=== PATIENT | male | born 1970 | race Caucasian/White ===

== ENCOUNTER 2019-01-23 23:17 | Emergency (ER) | payer MEDICAID, OTHER ==
[~2019-01-23] VITALS: Ht 175.3 cm; Wt 8.4 kg
[~2019-01-23 23:17] MED LIST: GLUCOSAMINE PO
[2019-01-24 01:39] VITALS: BP 131/89
[2019-01-24] MEDS ORDERED: ketorolac trometh. 30mg/ml inj. IV ONE (02:35)
== END 2019-01-24 03:15 | disposition home or self-care (01) ==
LOC: ER 23:18
DX: T69.022A Immersion foot, left foot, initial encounter (principal); T69.021A Immersion foot, right foot, initial encounter; G89.29 Other chronic pain; F15.90 Other stimulant use, unspecified, uncomplicated; Z79.899 Other long term (current) drug therapy; Z88.2 Allergy status to sulfonamides; Z86.19 Personal history of other infectious and parasitic diseases; Z98.890 Other specified postprocedural states; Y92.89 Other specified places as the place of occurrence of the external cause
CPT/HCPCS: 96374; 99283; J1885

== ENCOUNTER 2019-02-04 07:45 | Emergency (ER) | payer MEDICAID, OTHER ==
[~2019-02-04] VITALS: Ht 175.3 cm; Wt 72.7 kg
[2019-02-04] MEDS ORDERED: IBUP-1984 PO (08:27)
[2019-02-04 08:41] VITALS: BP 132/86
[2019-02-09] MEDS ORDERED: DOXY100T2 PO (13:17)
== END 2019-02-04 08:48 | disposition home or self-care (01) ==
LOC: ER 07:46
DX: M25.561 Pain in right knee (principal); G89.29 Other chronic pain; F17.200 Nicotine dependence, unspecified, uncomplicated; F15.90 Other stimulant use, unspecified, uncomplicated; Z88.2 Allergy status to sulfonamides; Z79.899 Other long term (current) drug therapy; Z98.890 Other specified postprocedural states
CPT/HCPCS: 29505; 73564; 99283

== ENCOUNTER 2019-06-03 14:30 | Inpatient (IN) | payer MEDICAID, OTHER ==
[~2019-06-03] VITALS: Ht 175.3 cm; Wt 75.0 kg
[~2019-06-03 14:30] MED LIST changes: +DOXY100T2 PO
[2019-06-03 21:00] VITALS: BP 133/99
[2019-06-03] MEDS ORDERED: LORazepam 1 MG tablet PO PRN (22:50)
[2019-06-03] MEDS ORDERED: traZODone 50mg tablet PO PRN (22:50)
[2019-06-03] MEDS ORDERED: acetaminophen 325mg tablet PO PRN ×2 (23:00)
[2019-06-03] MEDS ORDERED: magnesium hydroxide 30ml (MOM) UD suspension PO PRN (23:05)
[2019-06-03] MEDS ORDERED: loperamide 2mg capsule PO PRN (23:05)
[2019-06-03] MEDS ORDERED: mag hydrox/Alum hydrox/simeth 30ml oral suspension PO PRN (23:05)
[2019-06-03] MEDS ORDERED: hydrOXYzine 25 MG tablet PO PRN (23:10)
[2019-06-03] MEDS ORDERED: NICOTINE POLACRILEX 2 MG LOZENGE BC PRN (23:20)
--- NOTE | 2019-06-04 00:41 | NUR ---
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 30 year hx ETOH and tobacco use. Smokes 1 ppd. THIS SHIFT: Client transferred from [facility] for Depression and suicidal ideation. Client ambulated to the unit, accompanied by Luis Fernando Da Silva at 21:00. Client presented to CSU reporting SI and having ingested anti-freeze in order to end his life. Client has a 30 year hx of ETOH abuse and tobacco use. Reports mother and brother suicided. Client was angry and resistive to care. Stated,"Why are you asking all these stupid questions? Why do I have to answer the same questions twenty times?" Client gave terse verbal responses. Denied any significant medical hx other than ulcerative colitis. Client resisted 2 RN skin checks. Client did consent to an assessment by Lul Inman RN. Client did not give direct answer to his housing status. Client showered, ate a snack, was oriented to unit. Client was resisted care and stated, "I want to sleep". Client went to sleep after assessment.
[2019-06-04 07:10] LABS: HEMOGLOBIN A1C 5.8 % (4.5-6.2)
[2019-06-04 07:12] LABS: CHOL/HDL RATIO 3.6 (0.00-4.99); CHOLESTEROL 146 MG/DL (0-200); HDL CHOLESTEROL 41 MG/DL (35-60); LDL CHOLESTEROL 88 MG/DL (50-100); TRIGLYCERIDES 68 MG/DL (20-135)
[2019-06-04 08:00] VITALS: BP 95/68
[2019-06-04] MEDS: nicotine 21mg patch - 24 hr TD SCH (08:00)
[2019-06-04 08:36] LABS: BASOPHILS % (AUTO) 0.2 % (0-1); EOSINOPHILS # (AUTO) 0.5 X10'3 (0-0.9); EOSINOPHILS % (AUTO) 7.2 % (0-6); HEMATOCRIT 41.5 % (42.0-52.0); HEMOGLOBIN 14.2 g/dl (14.0-17.9); LYMPHOCYTES # (AUTO) 2.1 X10'3 (1.1-4.8); LYMPHOCYTES % (AUTO) 28.3 % (21-51); MEAN CORPUSCULAR HEMOGLOBIN 30.1 PG (27.0-31.0); MEAN CORPUSCULAR HGB CONC 34.1 g/dL (33.0-36.5); MEAN CORPUSCULAR VOLUME 88.1 FL (78-98); MEAN PLATELET VOLUME 8.6 FL (7.4-10.4); MONOCYTES # (AUTO) 0.7 X10'3 (0-0.9); MONOCYTES % (AUTO) 9.6 % (2-12); NEUTROPHILS % (AUTO) 54.7 % (42-75); PLATELET COUNT 437 X10'3 (140-440); RED BLOOD COUNT 4.71 X10'6 (4.70-6.10); WHITE BLOOD COUNT 7.4 X10'3 (4.5-11.0)
[2019-06-04 08:53] LABS: ALANINE AMINOTRANSFERASE 27 U/L (12-78); ALBUMIN 2.9 G/DL (3.4-5.0); ALBUMIN/GLOBULIN RATIO 0.9 (1.1-1.5); ALKALINE PHOSPHATASE 105 IU/L (46-116); ANION GAP 9 (8-16); ASPARTATE AMINO TRANSFERASE 19 U/L (10-37); BILIRUBIN,TOTAL 0.1 MG/DL (0.1-1.0); BLOOD UREA NITROGEN 12 MG/DL (7-18); BUN/CREATININE RATIO 13.3 (5.4-32.0); CALCIUM 8.2 MG/DL (8.5-10.1); CHLORIDE 106 MMOL/L (99-107); GLUCOSE 102 MG/DL (70-104); POTASSIUM 3.7 MMOL/L (3.5-5.1); SODIUM 141 MMOL/L (135-145); TOTAL CARBON DIOXIDE 25.9 MMOL/L (24-32); eGFR 89 ML/MIN
--- NOTE | 2019-06-04 16:28 | NUR ---
Nursing Progress Note: Turner Legal hold: 5150 Expires 06/06/19 @ 2100 Client on voluntary/involuntary status for DTS. Report received from RIAZ Canas with use of SBAR. Why are they here: Client transferred from [facility] for Depression and suicidal ideation. Client presented to CSU reporting SI and having ingested anti-freeze in order to end his life. Client has a 30 year hx of ETOH abuse and tobacco use. Reports mother and brother both by suicide. Assessment What has happened this shift: Approached patient in recreation room shortly after change of shift. Initially he was pleasant and agreed to both physical and MH assessment. When asked about the events which led to his admission, patient became irritated and asked for a pen and paper "I might as well write it down, since I have been asked 47 times now" He followed by stating "I dont want to talk about that, it is in the past." States he did initially have some audio hallucinations, but would not elaborate further. No medications had been ordered other than PRNs, offered a nicotine patch which he declined. Patient remained isolative throughout the day. Was either in bed or watching TV alone in recreation room. Does not interact with staff. S/I, H/I: Denies A/VH: Audio Sleep: 6 ADL's: independent Group attendance: No Were meds taken: None ordered Any med S/E none Mental Status Exam Appearance: well groomed, dressed in street clothes Eye contact: direct Behavior: cooperative, irritable Speech: clear Mood: irritable Affect: constricted Thought process: Linear Thought Content: not wanting to talk about why he is here Cognition: A & O X 4 Insight: fair Judgment: fair Interventions PRN's used: none Therapeutic interventions: 1:1 therapeutic assessment, provided active listening, medication administration/education/monitoring, ensured contract for safety, Q15 min safety checks. Restraints/seclusion/emergency medication: none Justification of Continued Inpatient Treatment: patient continues to have poor insight and remains at high risk for discharge. He requires full psychiatric assessment and stabilization within a safe and therapeutic environment.
[2019-06-04 19:00] VITALS: BP 114/82
--- NOTE | 2019-06-05 02:14 | NUR ---
Nursing Progress Note: Legal hold: 5150 Expires 06/06/19 @ 2100 Client on involuntary status for DTS. Report received from RIAZ Katz with use of SBAR. Why are they here: Client transferred from [facility] for Depression and suicidal ideation. Client presented to CSU reporting SI and having ingested anti-freeze in order to end his life. Client has a 30 year hx of ETOH abuse and tobacco use. Reports mother and brother both by suicide. Assessment What has happened this shift: The patient was seen in the rec room at shift change. He agreed to 1:1 at his bedside. The patient is guarded with information, and continues to refuse talking about events that led to him being here. He does not respond well to questions, even coming from this commercial loan underwriter who is known to patient. He spends time in rec room watching TV, and does not engage in conversation with other clients or with staff. The patient has no scheduled medications, and refused any PRNs. He went to bed after snack time. S/I, H/I: Denies A/VH: Denies Sleep: See sleep hours ADL's: independent Group attendance: No groups at night. Were meds taken: None ordered Any med S/E None. Mental Status Exam Appearance: well groomed, dressed appropriately in street clothes. Eye contact: direct Behavior: Irritable, isolative. Speech: Clear Mood: Irritable Affect: Constricted Thought process: Linear Thought Content: Not known Cognition: A & O X 4 Insight: fair Judgment: fair Interventions PRN's used: none Therapeutic interventions: 1:1 therapeutic assessment, provided active listening, medication administration/education/monitoring, ensured contract for safety, Q15 min safety checks. Restraints/seclusion/emergency medication: none Justification of Continued Inpatient Treatment: patient continues to have poor insight and remains at high risk for discharge. He requires full psychiatric assessment and stabilization within a safe and therapeutic environment.
[2019-06-05 07:53] VITALS: BP 110/72
[2019-06-05] MEDS: nicotine 21mg patch - 24 hr TD SCH ×2 (07:55→08:00)
--- NOTE | 2019-06-05 15:04 | NUR ---
Nursing Progress Note: Turner Legal hold: 5150 Expires 06/06/19 @ 2100 Client on involuntary status for DTS. Report received from RIAZ Canas with use of SBAR. Why are they here: Client transferred from [facility] for Depression and suicidal ideation. Client presented to CSU reporting SI and having ingested anti-freeze in order to end his life. Client has a 30 year hx of ETOH abuse and tobacco use. Reports mother and brother both by suicide. Assessment What has happened this shift: The patient was seen in the rec room at shift change. Cooperative with physical and MH assessment. Had requested previous evening to shave which was arranged for him this morning. Patient guarded with specific information about past and recent crisis. When asked generalized questions he more willingly engages. States he is feeling some improvement in depression. Does state he prefers not to be around a lot of people, is regularly seen in small rec room watching TV. Enjoyed watching football game on TV. Will start latuda today. S/I, H/I: Denies A/VH: Denies Sleep: 8 hours ADL's: independent, showered and shaved today Group attendance: no group Were meds taken: None ordered Any med S/E None. Mental Status Exam Appearance: well groomed, dressed appropriately in street clothes. Eye contact: direct Behavior: Calm, isolative. Speech: Clear Mood: Somnolent Affect: Guarded Thought process: Linear Thought Content: Not known Cognition: A & O X 4 Insight: fair Judgment: fair Interventions PRN's used: none Therapeutic interventions: 1:1 therapeutic assessment, provided active listening, medication administration/education/monitoring, ensured contract for safety, Q15 min safety checks. Restraints/seclusion/emergency medication: none Justification of Continued Inpatient Treatment: patient continues to have poor insight and remains at high risk for discharge. He requires full psychiatric assessment and stabilization within a safe and therapeutic environment.
[2019-06-05] MEDS ORDERED: nicotine 21mg patch - 24 hr TD ONE (17:00)
[2019-06-05] MEDS ORDERED: lurasidone 20mg tablet PO SCH (17:00)
[2019-06-05 19:57] VITALS: BP 101/67
--- NOTE | 2019-06-05 22:59 | NUR ---
Nursing Progress Note: Legal hold: 5150 Expires 06/06/19 @ 2100 Client on involuntary status for DTS. Report received from RIAZ Katz with use of SBAR. Why are they here: Client transferred from [facility] for Depression and suicidal ideation. Client presented to CSU reporting SI and having ingested anti-freeze in order to end his life. Client has a 30 year hx of ETOH abuse and tobacco use. Reports mother and brother both by suicide. Assessment What has happened this shift: The patient was in the rec room at shift change. He went to bed soon after. He agreed to 1:1 at his bedside. The patient continues to be guarded about the events leading up to his being here. He talks freely about past events that are known to myself...like his time spent at [facility]. He states that he spent time watching football today and using headphones. "When it gets too many people in there, I have to leave." The patient started Latuda today. No ASE noted. S/I, H/I: Passive A/VH: Denies Sleep: See sleep hours ADL's: independent Group attendance: No groups at night. Were meds taken: None ordered Any med S/E None. Mental Status Exam Appearance: Well groomed, dressed appropriately in street clothes. Eye contact: Direct Behavior: Irritable, isolative. Speech: Clear Mood: Irritable Affect: Constricted Thought process: Linear Thought Content: "I just want to get out of here." Cognition: A & O X 4 Insight: fair Judgment: fair Interventions PRN's used: none Therapeutic interventions: 1:1 therapeutic assessment, provided active listening, medication administration/education/monitoring, ensured contract for safety, Q15 min safety checks. Restraints/seclusion/emergency medication: none Justification of Continued Inpatient Treatment: patient continues to have poor insight and remains at high risk for discharge. He requires full psychiatric assessment and stabilization within a safe and therapeutic environment.
[2019-06-06 08:00] VITALS: BP 110/71
[2019-06-06] MEDS: nicotine 21mg patch - 24 hr TD SCH (08:00)
[2019-06-06] MEDS: lurasidone 20mg tablet PO SCH (17:42)
--- NOTE | 2019-06-06 17:45 | NUR ---
Nursing Progress Note: Turner Legal hold: 5150 Expires 06/06/19 @ 2100 Client on involuntary status for DTS. Report received from RIAZ Canas with use of SBAR. Why are they here: Client transferred from [facility] for Depression and suicidal ideation. Client presented to CSU reporting SI and having ingested anti-freeze in order to end his life. Client has a 30 year hx of ETOH abuse and tobacco use. Reports mother and brother both by suicide. Assessment What has happened this shift: Up for breakfast. Refused AM nicotine patch. Cooperative with physical and MH assessment. Initially stated "Don't start asking me all the same questions every one else does because I'm not answering anything." Patient then asked if he graduated high school. Said "Of course not. 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 In the early afternoon, sat in a chair in the valentine and was making derogatory statements at staff for unknown reasons. Did not accept responsibility for his behavior. When confronted "What are you talking about, I haven't done anything." Keeps to himself. Does not engage in conversations with others. Denies suicidal ideation or intent. "I just need to get myself out of this place and start living again." Presents as incapable of recognizing cause and effect behavior. S/I, H/I: Denies A/VH: Denies Sleep: 8 hours ADL's: Independent Group attendance: no group Were meds taken: None ordered Any med S/E:None noted Mental Status Exam Appearance: well groomed, dressed appropriately in street clothes. Eye contact: direct Behavior: Calm, isolative. Speech: Clear Mood: Somnolent Affect: Guarded Thought process: Linear Thought Content: Not known Cognition: A & O X 4 Insight: fair Judgment: fair Interventions PRN's used: Ativan 1 mg. PO PRN Therapeutic interventions: 1:1 therapeutic assessment, provided active listening, medication administration/education/monitoring, ensured contract for safety, Q15 min safety checks. Restraints/seclusion/emergency medication: none Justification of Continued Inpatient Treatment: patient continues to have poor insight and remains at high risk for discharge. He requires full psychiatric assessment and stabilization within a safe and therapeutic environment.
--- NOTE | 2019-06-06 19:45 | NUR ---
At around 1900 I was doing my rounds on the unit, and I entered this patients room which was open, and patients roommate and nurse were present in the room. I was engaged in conversation with patients roommate when the patient began swearing and becoming agitated because we were disturbing his sleep. I tried to explain to the patient who I was and that I was doing my rounds and patient continued to be belligerent and I explained to him that it was still daytime hours and that his behavior was not acceptable. I left the room and patient followed me down the hallway requesting to know my name and wanting a grievance form, he was provided with both.
[2019-06-06 20:00] VITALS: BP 119/83
--- NOTE | 2019-06-06 22:18 | NUR ---
Nursing Progress Note: Legal hold: 5150 Expires 06/06/19 @ 2100 Client on involuntary status for DTS. Report received from RIAZ Katz with use of SBAR. Why are they here: Client transferred from [facility] for Depression and suicidal ideation. Client presented to CSU reporting SI and having ingested anti-freeze in order to end his life. Client has a 30 year hx of ETOH abuse and tobacco use. Reports mother and brother both by suicide. Assessment What has happened this shift: The patient was in the rec room at shift change. He was watching TV and saying derogatory words to people walking by. When asked why he's doing that, he replied that he wasn't doing anything. The patient avoids staff and isolates in his room. He is not going to groups or doing anything to help himself. The patient's 5150 was up at 2100 tonight, and the patient signed Voluntary. He states that he will probably leave tomorrow. S/I, H/I: Denies A/VH: Denies Sleep: See sleep hours ADL's: independent Group attendance: No groups at night. Were meds taken: None ordered Any med S/E None. Mental Status Exam Appearance: Well groomed, dressed appropriately in street clothes. Eye contact: Direct Behavior: Irritable, isolative, angry Speech: Clear Mood: Angry Affect: Constricted Thought process: Linear Thought Content: "I just want to get out of here." Cognition: A & O X 4 Insight: fair Judgment: fair Interventions PRN's used: none Therapeutic interventions: 1:1 therapeutic assessment, provided active listening, medication administration/education/monitoring, ensured contract for safety, Q15 min safety checks. Restraints/seclusion/emergency medication: none Justification of Continued Inpatient Treatment: patient continues to have poor insight and remains at high risk for discharge. He requires full psychiatric assessment and stabilization within a safe and therapeutic environment.
[2019-06-07 08:00] VITALS: BP 108/70
[2019-06-07] MEDS: nicotine 21mg patch - 24 hr TD SCH (08:37)
--- NOTE | 2019-06-07 16:03 | NUR ---
Nursing Progress Note: Asif Legal hold: 5150 Expires 06/06/19 @ 2100 Client on involuntary status for DTS. Report received from RIAZ Neri with use of SBAR. Why are they here: Client transferred from [facility] for Depression and suicidal ideation. Client presented to CSU reporting SI and having ingested anti-freeze in order to end his life. Client has a 30 year hx of ETOH abuse and tobacco use. Reports mother and brother both by suicide. Assessment What has happened this shift: Client was awake and was angry when this publicity writer assumed care. Client wishes to discharge to [facility] and is frustrated that he may not be able to return there before discharging locally. He refuses to contract for safe behaviors and refuses any PRN intervention. He was given headphones to distract with good effect. Client spoke with Dr. Wells and this publicity writer and seemed to calm once he was awre of this facilities efforts to find a viable discharge plan. Client was amicable to assessment and medications and has had no behavioral issues as of this writing. Client is currently here on a voluntary basis and when angered, client will want to depart unit. Redirection has been effective. Client was offerred a warm shower at 1118 hours and accepted. Client was interviewed by [facility] Staff today regarding transitional housing after discharge. Client is having difficulty with his anxiety as it pertains to his discharge plans. He has been loud verbally and intrusive with various members of the team attempting to be discharged today. Client was informed that he would have a bed a [facility] tomorrow and he was encouraged to remain on unit on voluntary status until he can be transitioned safely. Client redirected and he was allowed in his room where he is currently resting (1439 hours). Client did verbally agree to stay until he can be safely transitioned when [facility] opens a bed for him tomorrow. S/I, H/I: Denies A/VH: Denies Sleep: ADL's: independent Group attendance: no Were meds taken: None ordered Any med S/E None. Mental Status Exam Appearance: Well groomed, dressed appropriately in street clothes. Eye contact: Direct Behavior: Irritable, isolative, angry Speech: Clear Mood: Angry Affect: Constricted Thought process: Linear Thought Content: "I just want to get out of here." Cognition: A & O X 4 Insight: fair Judgment: poor Interventions PRN's used: none Therapeutic interventions: 1:1 therapeutic assessment, provided active listening, medication administration/education/monitoring, ensured contract for safety, Q15 min safety checks. Restraints/seclusion/emergency medication: none Justification of Continued Inpatient Treatment: patient continues to have poor insight and remains at high risk for discharge. He requires full psychiatric assessment and stabilization within a safe and therapeutic environment.
[2019-06-07] MEDS: lurasidone 20mg tablet PO SCH (16:55)
[2019-06-07 20:14] VITALS: BP 117/78
--- NOTE | 2019-06-08 00:31 | NUR ---
Nursing Progress Note: Legal hold: 5150 Expires 06/06/19 @ 2100 Client on involuntary status for DTS. Report received from RIAZ Katz with use of SBAR. Why are they here: Client transferred from [facility] for Depression and suicidal ideation. Client presented to CSU reporting SI and having ingested anti-freeze in order to end his life. Client has a 30 year hx of ETOH abuse and tobacco use. Reports mother and brother both by suicide. Assessment What has happened this shift: The patient was in the group room watching music videos at shift change. He sits by himself and doesn't interact with other clients. "I'm still not saying anything to you." The patient continues his anti-social behaviors, and avoids eye contact with anybody. He c/o anxiety related to his discharge, but will not use any PRN medicine foe relief. The patient was calm and peaceful tonight with no outbursts. He expects to DC to the [facility] in the morning. S/I, H/I: Denies A/VH: Denies Sleep: See sleep hours ADL's: independent Group attendance: No groups at night. Were meds taken: None ordered Any med S/E None. Mental Status Exam Appearance: Well groomed, dressed appropriately in street clothes. Eye contact: Avoids Behavior: Irritable, isolative, angry Speech: Clear Mood: Angry Affect: Flat Thought process: Linear Thought Content: "I just want to get out of here." Cognition: A & O X 4 Insight: fair Judgment: fair Interventions PRN's used: none Therapeutic interventions: 1:1 therapeutic assessment, provided active listening, medication administration/education/monitoring, ensured contract for safety, Q15 min safety checks. Restraints/seclusion/emergency medication: none Justification of Continued Inpatient Treatment: patient continues to have poor insight and remains at high risk for discharge. He requires full psychiatric assessment and stabilization within a safe and therapeutic environment.
[2019-06-08 08:00] VITALS: BP 116/72
[2019-06-08] MEDS: nicotine 21mg patch - 24 hr TD SCH (08:00)
[2019-06-08] MEDS ORDERED: LURA80TA3 PO (11:34)
[2019-06-08] MEDS ORDERED: HYDR50TA65 PO (11:34)
--- NOTE | 2019-06-08 16:12 | NUR ---
Nursing Discharge Note Patient is discharged and accompanied off the unit at 1525. He will be transported via [facility] TAD Nutrition Services Assistant to [facility] Patient has no S/S of distress. Discharge instructions given and provided to patient. Opportunity provided to patient to ask questions, patient denies having any. Prescriptions called into [facility]. Patient denies wanting nicotine replacement stating No I dont need it, I havent decided if I want to quit or not. Patients belongings inventoried with Donte LEIJA. Patient took all possessions with him. Community crisis service information and national suicide hot line handout given. Patient has improved since admit.
== END 2019-06-08 15:25 | disposition short-term general hospital (02) | DRG 753 ==
LOC: ADULT MH 14:30
PROVIDERS: ADMIT Psychiatry & Neurology Psychiatry; ATTEND Psychiatry & Neurology Psychiatry
DX: F31.5 Bipolar disorder, current episode depressed, severe, with psychotic features (principal); R45.851 Suicidal ideations; F15.151 Other stimulant abuse with stimulant-induced psychotic disorder with hallucinations; F43.10 Post-traumatic stress disorder, unspecified; F41.1 Generalized anxiety disorder; F17.210 Nicotine dependence, cigarettes, uncomplicated; G47.00 Insomnia, unspecified; Z65.3 Problems related to other legal circumstances; Z85.828 Personal history of other malignant neoplasm of skin; Z71.6 Tobacco abuse counseling; Z71.51 Drug abuse counseling and surveillance of drug abuser
CPT/HCPCS: 36415; 71045; 80053; 80061; 83036; 84443; 85025; 87081; 99285

== ENCOUNTER 2019-10-28 02:43 | Emergency (ER) | payer MEDICAID ==
[~2019-10-28] VITALS: Ht 182.9 cm; Wt 100.0 kg
[~2019-10-28 02:43] MED LIST changes: -DOXY100T2 PO; -GLUCOSAMINE PO; +HYDR50TA65 PO; +LURA80TA3 PO
[2019-10-28 02:46] VITALS: BP 119/78
[2019-10-28] MEDS ORDERED: MUPI22OI30 TOP (02:55)
[2019-10-28] MEDS ORDERED: MICO113C TOP (02:55)
[2019-10-28] MEDS ORDERED: IBUP-1986 PO (02:55)
== END 2019-10-28 03:13 | disposition home or self-care (01) ==
LOC: ER 02:44
DX: B35.3 Tinea pedis (principal); G89.29 Other chronic pain; F15.90 Other stimulant use, unspecified, uncomplicated; F17.210 Nicotine dependence, cigarettes, uncomplicated; Z98.890 Other specified postprocedural states; Z86.19 Personal history of other infectious and parasitic diseases; Z88.2 Allergy status to sulfonamides; Z88.8 Allergy status to other drugs, medicaments and biological substances; Z79.899 Other long term (current) drug therapy
CPT/HCPCS: 99283

== ENCOUNTER 2021-11-16 03:23 | Emergency (ER) | payer MEDICAID ==
[~2021-11-16] VITALS: Ht 175.3 cm; Wt 66.2 kg
[~2021-11-16 03:23] MED LIST changes: +IBUP-1986 PO; +LURA80TA2 PO; -LURA80TA3 PO; +MICO113C TOP
== END 2021-11-16 07:39 | disposition left against medical advice (07) ==
LOC: ER 03:24
DX: M79.644 Pain in right finger(s) (principal); Z53.21 Procedure and treatment not carried out due to patient leaving prior to being seen by health care provider

== ENCOUNTER 2021-12-31 01:59 | Emergency (ER) | payer MEDICAID ==
[~2021-12-31] VITALS: Ht 172.7 cm; Wt 81.8 kg
[2021-12-31 02:16] VITALS: BP 152/98
[2021-12-31 02:49] LABS: BASOPHILS # (AUTO) 0.1 X10'3 (0-0.2); BASOPHILS % (AUTO) 1.1 % (0-1); EOSINOPHILS # (AUTO) 0.4 X10'3 (0-0.9); EOSINOPHILS % (AUTO) 3.4 % (0-6); HEMATOCRIT 41.5 % (42.0-52.0); HEMOGLOBIN 14.2 g/dl (14.0-17.9); LYMPHOCYTES # (AUTO) 1.6 X10'3 (1.1-4.8); LYMPHOCYTES % (AUTO) 13.7 % (21-51); MEAN CORPUSCULAR HEMOGLOBIN 29.7 PG (27.0-31.0); MEAN CORPUSCULAR HGB CONC 34.3 g/dL (33.0-36.5); MEAN CORPUSCULAR VOLUME 86.7 FL (78-98); MEAN PLATELET VOLUME 7.4 FL (7.4-10.4); MONOCYTES # (AUTO) 0.9 X10'3 (0-0.9); MONOCYTES % (AUTO) 7.4 % (2-12); NEUTROPHILS # (AUTO) 8.8 X10'3 (1.8-7.7); NEUTROPHILS % (AUTO) 74.4 % (42-75); PLATELET COUNT 493 X10'3 (140-440); RED BLOOD COUNT 4.79 X10'6 (4.70-6.10); RED CELL DISTRIBUTION WIDTH 14.3 % (11.5-14.5); WHITE BLOOD COUNT 11.8 X10'3 (4.5-11.0)
[2021-12-31 02:57] LABS: ALANINE AMINOTRANSFERASE 55 U/L (12-78); ALBUMIN 3.5 G/DL (3.4-5.0); ALKALINE PHOSPHATASE 143 IU/L (46-116); ANION GAP 10 (8-16); ASPARTATE AMINO TRANSFERASE 37 U/L (10-37); BILIRUBIN,TOTAL 0.4 MG/DL (0.1-1.0); BLOOD UREA NITROGEN 25 MG/DL (7-18); BUN/CREATININE RATIO 25.3 (5.4-32.0); CALCIUM 8.6 MG/DL (8.5-10.1); CHLORIDE 103 MMOL/L (99-107); CREATININE 0.99 MG/DL (0.60-1.10); GLUCOSE 132 MG/DL (70-104); POTASSIUM 3.8 MMOL/L (3.5-5.1); SODIUM 141 MMOL/L (135-145); TOTAL CARBON DIOXIDE 28.1 MMOL/L (24-32); TOTAL PROTEIN 7.1 G/DL (6.4-8.2); eGFR 79 ML/MIN
== END 2021-12-31 03:45 | disposition home or self-care (01) ==
LOC: ER 01:59
DX: F10.129 Alcohol abuse with intoxication, unspecified (principal); R56.9 Unspecified convulsions; R00.0 Tachycardia, unspecified; G89.29 Other chronic pain; F15.90 Other stimulant use, unspecified, uncomplicated; Z86.19 Personal history of other infectious and parasitic diseases; Z72.89 Other problems related to lifestyle; Z98.890 Other specified postprocedural states; Z88.2 Allergy status to sulfonamides; Z88.8 Allergy status to other drugs, medicaments and biological substances; Z79.899 Other long term (current) drug therapy; Y90.9 Presence of alcohol in blood, level not specified
CPT/HCPCS: 36415; 80053; 85025; 93005; 99284

== ENCOUNTER 2022-01-03 14:51 | Inpatient (IN) | payer MEDICAID ==
[~2022-01-03] VITALS: Ht 175.3 cm; Wt 69.9 kg
[2022-01-03] MEDS ORDERED: CYCL-1 PO ×2 (22:04→22:08)
[2022-01-03] MEDS ORDERED: MELO-102 PO ×2 (22:04→22:08)
[2022-01-03] MEDS ORDERED: GABA-530 PO (22:04)
[2022-01-03] MEDS ORDERED: IBUP-1986 PO (22:08)
[2022-01-03] MEDS ORDERED: loperamide 2mg capsule PO PRN (22:25)
[2022-01-03] MEDS ORDERED: magnesium hydroxide 30ml (MOM) UD suspension PO PRN (22:25)
[2022-01-03] MEDS ORDERED: mag hydrox/Alum hydrox/simeth 30ml oral suspension PO PRN (22:25)
[2022-01-03] MEDS ORDERED: acetaminophen 325mg tablet PO PRN (22:25)
[2022-01-03] MEDS ORDERED: NICOTINE POLACRILEX 2 MG LOZENGE BC PRN (22:25)
[2022-01-03 22:32] VITALS: BP 143/94
[2022-01-04] MEDS ORDERED: gabapentin 100mg capsule PO SCH
[2022-01-04] MEDS ORDERED: cyclobenzaprine 10mg tablet PO SCH
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
--- NOTE | 2022-01-04 04:46 | NUR ---
[facility] notified [facility] that client's clothes and medication were at [facility] ED. (This RN left unit at 00:30 to get client's belongings. Returned to unit at 01:00.) Belongings included a coat and a bottle of Flexeril. Items were inventoried by Luis Fernando Da Silva Flexeril was taken to pharmacy.
[2022-01-04 08:00] VITALS: BP 128/90
[2022-01-04] MEDS ORDERED: MELOXICAM PO SCH (08:00)
[2022-01-04] MEDS: nicotine 21mg patch - 24 hr TD SCH ×2 (08:00→08:05)
[2022-01-04] MEDS: gabapentin 100mg capsule PO SCH ×3 (08:05→20:13)
[2022-01-04] MEDS ORDERED: hydrOXYzine 25 MG tablet PO PRN ×2 (11:00)
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
[2022-01-04 19:00] VITALS: BP 130/86
[2022-01-04] MEDS: cyclobenzaprine 10mg tablet PO PRN (20:13)
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
[2022-01-05] MEDS: gabapentin 100mg capsule PO SCH ×3 (07:53→20:14)
[2022-01-05] MEDS: acetaminophen 325mg tablet PO PRN (07:54)
[2022-01-05 08:00] VITALS: BP 129/85
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
[2022-01-05 19:33] VITALS: BP 128/84
[2022-01-05] MEDS: cyclobenzaprine 10mg tablet PO PRN (20:14)
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
[2022-01-06] MEDS: gabapentin 100mg capsule PO SCH ×3 (07:53→20:25)
[2022-01-06] MEDS: acetaminophen 325mg tablet PO PRN (07:54)
[2022-01-06 08:00] VITALS: BP 119/87
--- NOTE | 2022-01-06 09:16 | NUR ---
CM-Linkages Pt states that he's been working [facility] to access inpt [facility] services. Clinician had t/c [facility] new pt coordinator @ [facility], per t/c pt has not established services w/[facility], had 1 outpt contact but no documentation of [facility] services. Clinician will engage pt in exploring options for dcp. Doreen Esparza LCSW Addendum: 01/07/22 at 0919 by Doreen Esparza SS Amended: Links added.
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
[2022-01-06 19:42] VITALS: BP 110/64
[2022-01-06] MEDS: cyclobenzaprine 10mg tablet PO PRN (20:25)
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
[2022-01-07] MEDS: gabapentin 100mg capsule PO SCH ×3 (08:03→20:05)
--- NOTE | 2022-01-07 09:01 | NUR ---
Initial: Pt admitted w/ suicidal ideations per EMR. Currently on Regular diet w/ double protein TID w/ mostly 100% intake of meals and some snacks, exceeding est nutrient needs. Recommend discontinuing double protein w/ meals as it is not indicated given pt exceeding protein needs by over 200% LBM 01/06. Will continue to monitor. Recs: 1. Continue Regular diet; Discontinue double protein 2. Routine Thiamine, Folic acid, MVI if MD agreeable given EtOH hx 3. Bowel care per rx 4. Weekly wts Addendum: 01/07/22 at [address] Amended: Links added.
[2022-01-07 09:07] VITALS: BP 107/81
--- NOTE | 2022-01-07 11:01 | NUR ---
CM-dcp Presenting Issues: Pt's 5150 had , attending physician was planning to provide a 5250. Pt continues to require dcp support. Interventions: Clinician met w/pt & reviewed his dcp- going to [facility] as pt believes that he's got a bed there. However, pt's on a waitlist for a 02/03 admission there. When informed of this, pt became upset, cursing loudly, expressed sentiments that [facility] had lied to him as they told me that "there's a bed waiting for me." Clinician suggested that once he is able to speak calmly, he can contact [facility] again and request for a facility that can admit him w/in 24-48 hours. Pt indicated that he would do so. Plan: Clinician will check in w/pt late this afternoon. Doreen Esparza LCSW Addendum: 01/07/22 at 1106 by Doreen Esparza SS Amended: Links added.
[2022-01-07] MEDS ORDERED: ESCITALOPRAM OXALATE 5 MG TABLET PO ONE (11:55)
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
[2022-01-07] MEDS ORDERED: hydrOXYzine 25 MG tablet PO PRN (15:45)
[2022-01-07 19:41] VITALS: BP 122/75
[2022-01-07] MEDS: LORazepam 0.5 MG tablet PO PRN (20:05)
[2022-01-07] MEDS: traZODone 50mg tablet PO PRN (20:05)
[2022-01-07] MEDS: cyclobenzaprine 10mg tablet PO PRN (20:08)
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
[2022-01-08] MEDS: duloxetine 30mg CAPSULE.DR PO SCH (07:25)
[2022-01-08] MEDS: gabapentin 100mg capsule PO SCH ×3 (07:25→20:07)
[2022-01-08 07:50] VITALS: BP 124/80
[2022-01-08] MEDS ORDERED: ESCITALOPRAM OXALATE 5 MG TABLET PO SCH (08:00)
--- NOTE | 2022-01-08 15:08 | NUR ---
CM-Linkages Presenting Issues: Pt is close to d/c-ing and has followed up w/[facility], scheduled an intake w/[facility] for 01/27 hoping to get a bed there on 02/03. Attending physician recommends [facility] services until he can enter [facility]. Interventions: Met w/pt and provided info about [facility], pt agreed to a referral there. Clinician completed referral and sent it to [facility] to facilitate pt's access to [facility] interview. Plan: Clinician will f/u w/[facility] re pt's [facility] referral. Doreen Esparza LCSW Addendum: 01/08/22 at 1511 by Doreen Esparza SS Amended: Links added.
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
[2022-01-08 19:27] VITALS: BP 121/85
[2022-01-08] MEDS: cyclobenzaprine 10mg tablet PO PRN (20:07)
[2022-01-08] MEDS: LORazepam 0.5 MG tablet PO PRN (20:07)
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
[2022-01-09 07:47] VITALS: BP 122/86
[2022-01-09] MEDS: duloxetine 30mg CAPSULE.DR PO SCH (08:09)
[2022-01-09] MEDS: gabapentin 100mg capsule PO SCH ×3 (08:09→20:20)
--- NOTE | 2022-01-09 08:55 | NUR ---
CM-Continuity of Care Presenting Issues: Pt will participate in an intake w/[facility] on 01/27 to determine if he meets criteria for inpatient drug/alcohol [place], [facility] is unable to provide services for pt as they have no open male beds. Interventions: Clinician had t/c with Claire, Lining Machine Operator @ [facility] ([phone]) requesting hotel vouchers for pt while he waits for a bed @ [facility]. Per t/c Claire ask that clinician call back tomorrow mid-day to see if [facility] will have a voucher for pt until 02/03. Pt will need to d/c sometime next week. Clinician also called [facility] ([phone]) and left requesting rt t/c re pt needing hotel voucher. Plan: Clinician will rt t/c to [facility] tomorrow. Doreen Esparza LCSW Addendum: 01/09/22 at 0916 by Doreen Esparza SS Amended: Links added.
--- NOTE | 2022-01-09 14:40 | NUR ---
CM-Pre dcp Presenting Issues: Pt's almost at baseline functioning and has been engaging in pre-dcp activities w/this clinician. Pt's to d/c sometime next week and needs f/u appointments and penitentiary. At this time [facility] cannot offer services to clt, clinician has reached out to [facility] program and inquired about possible hotel vouchers. Interventions: Clinician contact [facility] to coordinate pos-hospital appointment for pt, left with New Pt Coordinator @ [phone] requesting a rt t/c to schedule a post-hospital appointment for pt. Plan: Pt to d/c sometime next week. Addendum: 01/09/22 at 1444 by Doreen Esparza SS Amended: Links added.
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
[2022-01-09 19:51] VITALS: BP 122/76
[2022-01-09] MEDS: cyclobenzaprine 10mg tablet PO PRN (20:20)
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
[2022-01-10 08:00] VITALS: BP 101/74
[2022-01-10] MEDS ORDERED: duloxetine 30mg CAPSULE.DR PO SCH (08:00)
[2022-01-10] MEDS: gabapentin 100mg capsule PO SCH ×3 (08:14→20:21)
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
[2022-01-10 19:52] VITALS: BP 124/81
[2022-01-10] MEDS: cyclobenzaprine 10mg tablet PO PRN (20:21)
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
[2022-01-11 07:41] VITALS: BP 119/81
[2022-01-11] MEDS: ESCITALOPRAM OXALATE 5 MG TABLET PO SCH (07:58)
[2022-01-11] MEDS: duloxetine 30mg CAPSULE.DR PO SCH (07:58)
[2022-01-11] MEDS: gabapentin 100mg capsule PO SCH ×3 (07:58→21:04)
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
[2022-01-11 20:00] VITALS: BP 123/80
[2022-01-11] MEDS: LORazepam 0.5 MG tablet PO PRN (21:08)
[2022-01-11] MEDS: cyclobenzaprine 10mg tablet PO PRN (21:08)
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
[2022-01-12 07:57] VITALS: BP 115/82
[2022-01-12] MEDS: duloxetine 30mg CAPSULE.DR PO SCH (08:00)
[2022-01-12] MEDS: gabapentin 100mg capsule PO SCH ×3 (08:26→19:39)
[2022-01-12] MEDS: ESCITALOPRAM OXALATE 5 MG TABLET PO SCH (08:26)
--- NOTE | 2022-01-12 11:19 | NUR ---
Pt's scheduled medications were reconciled with AZRA Mandujano. She will discontinue pt's Cymbalta and increase Lexapro to 10mg. Received orders for a one-time dose of 5mg of Lexapro.
[2022-01-12] MEDS ORDERED: ESCITALOPRAM OXALATE 5 MG TABLET PO ONE (11:20)
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
[2022-01-12 19:34] VITALS: BP 121/87
[2022-01-12] MEDS: cyclobenzaprine 10mg tablet PO PRN (19:39)
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
[2022-01-13] MEDS: gabapentin 100mg capsule PO SCH ×3 (07:35→20:22)
[2022-01-13] MEDS: ESCITALOPRAM OXALATE 5 MG TABLET PO SCH (07:35)
[2022-01-13 08:00] VITALS: BP 114/81
--- NOTE | 2022-01-13 11:10 | NUR ---
CM Presenting Issues: Pt's on Vol Status, is homeless and unable to access services @ the [facility]. Requested hotel vouchers. Interventions: Met w/pt engaged him in dcp activities to plan for possibility that he will not be able to access care home upon d/c. Pt presented calm & cooperative until informed that [facility] cannot offer services to him as they do not have any open male beds & that clinician had not received a definite answer from [facility] availabilty of vouchers for motel room. Pt became argumentative and accused clinician and everyone of lying to him and stringing him along. Pt states, "you should've told me this last week then I could've left last week." When informed that he is free to d/c pt quiets down. Pt states, "I'll stay thru today" pt refused to participate in dcp activities to plan for possibilities of him not having care home upon d/c. Clinician had t/c w/Claire, Booth Operator @ [facility], left requesting rt t/c re hotel vouchers for pt. Clinician consulted w/MDT, per consultation pt to d/c tomorrow. Plan: Clinician will contact [facility] re vouchers, and talk to pt about d/c-ing tomorrow. Doreen Esparza LCSW Addendum: 01/13/22 at 1119 by Doreen Esparza SS Amended: Links added.
--- NOTE | 2022-01-13 15:04 | NUR ---
DCP Presenting Issues: Pt's on Vol status awaiting vouchers for motel room until admission date at [facility]. Interventions: Clinician Had t/c w/Claire Mckeon, Reading Specialist @ [facility], per t/c pt has been granted voucher to stay with the program starting tomorrow until 02/03 when he is admitted to [facility]. Pt must maintain a clean & sober status during his stay at the program. Clinician met w/pt to finalize dcp, pt agreed to d/c tomorrow and go to the [facility] transitional living program until 02/03. Plan: Clinician will coordinate transportation w/[facility] tomorrow. Doreen Esparza LCSW Addendum: 01/13/22 at 1508 by Doreen Esparza SS Amended: Links added.
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
[2022-01-13] MEDS: traZODone 50mg tablet PO PRN (20:22)
[2022-01-13] MEDS: cyclobenzaprine 10mg tablet PO PRN (20:22)
[2022-01-13] MEDS: LORazepam 0.5 MG tablet PO PRN (20:22)
[2022-01-13 20:56] VITALS: BP 118/85
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
[2022-01-14 08:00] VITALS: BP 127/84
[2022-01-14] MEDS: gabapentin 100mg capsule PO SCH ×2 (08:16→12:49)
[2022-01-14] MEDS: ESCITALOPRAM OXALATE 5 MG TABLET PO SCH (08:16)
[2022-01-14] MEDS ORDERED: HYDR-3686 PO (10:33)
[2022-01-14] MEDS ORDERED: GABA-530 PO (10:33)
[2022-01-14] MEDS ORDERED: TRAZ-251 PO (10:33)
[2022-01-14] MEDS ORDERED: ESCI5TAB PO (10:33)
[2022-01-14] MEDS ORDERED: NICO-907 BC (10:33)
--- NOTE | 2022-01-14 13:13 | NUR ---
DISCHARGE: Patient discharged and escorted from unit at approximately 1302. Patient is A&O x4, calm and cooperative, with no s/s of distress. Discharge instructions reviewed and given opportunity for all questions to be answered. Patient belongings inventoried and returned to him. Patients personal home medication retrieved from pharmacy and returned to him. He was ambulatory from the unit to the front of the hospital with a steady gait. Patient picked up by [facility] wrecker driver. He left the hospital without incident.
== END 2022-01-14 13:02 | disposition home or self-care (01) | DRG 753 ==
LOC: ADULT MH 21:01
PROVIDERS: ADMIT Psychiatry & Neurology Psychiatry; ATTEND Psychiatry & Neurology Psychiatry
DX: F31.9 Bipolar disorder, unspecified (principal); R45.851 Suicidal ideations; F10.20 Alcohol dependence, uncomplicated; F17.210 Nicotine dependence, cigarettes, uncomplicated; F15.10 Other stimulant abuse, uncomplicated; F43.10 Post-traumatic stress disorder, unspecified; G47.00 Insomnia, unspecified; G89.29 Other chronic pain; I10 Essential (primary) hypertension; Z59.00 Homelessness unspecified; Z79.899 Other long term (current) drug therapy; Z71.6 Tobacco abuse counseling; Z71.41 Alcohol abuse counseling and surveillance of alcoholic
CPT/HCPCS: 87081

== ENCOUNTER 2022-01-26 12:15 | Emergency (ER) | payer MEDICAID ==
[~2022-01-26] VITALS: Ht 175.3 cm; Wt 72.7 kg
[~2022-01-26 12:15] MED LIST changes: +ESCI5TAB PO; +GABA-530 PO; +HYDR-3686 PO; -HYDR50TA65 PO; -IBUP-1986 PO; -LURA80TA2 PO; -MICO113C TOP; +NICO-907 BC; +TRAZ-251 PO
[2022-01-26 12:18] VITALS: BP 130/93
== END 2022-01-26 13:20 | disposition home or self-care (01) ==
LOC: ER 12:15
DX: F10.20 Alcohol dependence, uncomplicated (principal); F19.10 Other psychoactive substance abuse, uncomplicated; F15.20 Other stimulant dependence, uncomplicated; G89.29 Other chronic pain; Z86.19 Personal history of other infectious and parasitic diseases; Z98.890 Other specified postprocedural states; Z72.89 Other problems related to lifestyle; Z88.2 Allergy status to sulfonamides; Z88.8 Allergy status to other drugs, medicaments and biological substances; Z79.899 Other long term (current) drug therapy; Y90.9 Presence of alcohol in blood, level not specified
CPT/HCPCS: 99281

== ENCOUNTER 2022-01-27 09:22 | Emergency (ER) | payer MEDICAID ==
[~2022-01-27] VITALS: Ht 175.3 cm; Wt 75.0 kg
[2022-01-27 09:25] VITALS: BP 131/89
== END 2022-01-27 10:32 | disposition home or self-care (01) ==
LOC: ER 09:23
DX: Z13.89 Encounter for screening for other disorder (principal); F10.239 Alcohol dependence with withdrawal, unspecified; F15.10 Other stimulant abuse, uncomplicated; G89.29 Other chronic pain; Z86.19 Personal history of other infectious and parasitic diseases; Z98.890 Other specified postprocedural states; Z72.89 Other problems related to lifestyle; Z88.2 Allergy status to sulfonamides; Z88.8 Allergy status to other drugs, medicaments and biological substances; Z79.899 Other long term (current) drug therapy; Y90.9 Presence of alcohol in blood, level not specified
CPT/HCPCS: 99281

== ENCOUNTER 2022-06-15 17:19 | Emergency (ER) | payer MEDICAID ==
[~2022-06-15] VITALS: Ht 175.3 cm; Wt 68.2 kg
[2022-06-15 17:31] VITALS: BP 98/69
== END 2022-06-16 01:20 | disposition left against medical advice (07) ==
LOC: ER 17:22
DX: R06.02 Shortness of breath (principal); Z53.21 Procedure and treatment not carried out due to patient leaving prior to being seen by health care provider

== ENCOUNTER 2022-06-21 12:49 | Emergency (ER) | payer MEDICAID ==
[~2022-06-21] VITALS: Ht 175.3 cm; Wt 76.0 kg
[2022-06-21 13:19] VITALS: BP 121/80
[2022-06-21 13:56] LABS: BASOPHILS # (AUTO) 0.1 X10'3 (0-0.2); BASOPHILS % (AUTO) 0.4 % (0-1); EOSINOPHILS # (AUTO) 0.5 X10'3 (0-0.9); EOSINOPHILS % (AUTO) 3.3 % (0-6); HEMATOCRIT 43.3 % (42.0-52.0); HEMOGLOBIN 14.5 g/dl (14.0-17.9); LYMPHOCYTES # (AUTO) 0.9 X10'3 (1.1-4.8); LYMPHOCYTES % (AUTO) 6.9 % (21-51); MEAN CORPUSCULAR HEMOGLOBIN 29.7 PG (27.0-31.0); MEAN CORPUSCULAR HGB CONC 33.5 g/dL (33.0-36.5); MEAN CORPUSCULAR VOLUME 88.5 FL (78-98); MEAN PLATELET VOLUME 8.2 FL (7.4-10.4); MONOCYTES # (AUTO) 1.7 X10'3 (0-0.9); MONOCYTES % (AUTO) 12.5 % (2-12); NEUTROPHILS # (AUTO) 10.5 X10'3 (1.8-7.7); NEUTROPHILS % (AUTO) 76.9 % (42-75); PLATELET COUNT 222 X10'3 (140-440); RED CELL DISTRIBUTION WIDTH 13.6 % (11.5-14.5); WHITE BLOOD COUNT 13.7 X10'3 (4.5-11.0)
[2022-06-21 14:15] LABS: ALANINE AMINOTRANSFERASE 372 U/L (12-78); ALBUMIN 2.2 G/DL (3.4-5.0); ALBUMIN/GLOBULIN RATIO 0.7 (1.1-1.5); ALKALINE PHOSPHATASE 86 IU/L (46-116); ANION GAP 7 (8-16); ASPARTATE AMINO TRANSFERASE 311 U/L (10-37); BILIRUBIN,TOTAL 0.3 MG/DL (0.1-1.0); BLOOD UREA NITROGEN 44 MG/DL (7-18); BUN/CREATININE RATIO 5.5 (5.4-32.0); CALCIUM 8.3 MG/DL (8.5-10.1); CHLORIDE 100 MMOL/L (99-107); GLUCOSE 141 MG/DL (70-104); POTASSIUM 4.3 MMOL/L (3.5-5.1); SODIUM 135 MMOL/L (135-145); TOTAL CARBON DIOXIDE 27.6 MMOL/L (24-32); TOTAL PROTEIN 5.5 G/DL (6.4-8.2); eGFR 7 ML/MIN
[2022-06-22] MEDS ORDERED: NO HOME MEDS (19:53)
== END 2022-06-21 19:47 | disposition left against medical advice (07) ==
LOC: ER 12:49
DX: R10.30 Lower abdominal pain, unspecified (principal); Z53.21 Procedure and treatment not carried out due to patient leaving prior to being seen by health care provider
CPT/HCPCS: 36415; 80053; 85025

== ENCOUNTER 2022-06-22 14:22 | Inpatient (IN) | payer MEDICAID ==
[~2022-06-22] VITALS: Ht 175.3 cm; Wt 68.2 kg
[2022-06-22 16:53] LABS: ALANINE AMINOTRANSFERASE 303 U/L (12-78); ALBUMIN/GLOBULIN RATIO 0.6 (1.1-1.5); ALKALINE PHOSPHATASE 104 IU/L (46-116); ANION GAP 11 (8-16); ASPARTATE AMINO TRANSFERASE 184 U/L (10-37); BILIRUBIN,TOTAL 0.3 MG/DL (0.1-1.0); BLOOD UREA NITROGEN 62 MG/DL (7-18); BUN/CREATININE RATIO 5.9 (5.4-32.0); CALCIUM 8.2 MG/DL (8.5-10.1); CHLORIDE 103 MMOL/L (99-107); CREATININE 10.51 MG/DL (0.60-1.10); GLUCOSE 142 MG/DL (70-104); POTASSIUM 4.4 MMOL/L (3.5-5.1); SODIUM 136 MMOL/L (135-145); TOTAL CARBON DIOXIDE 21.8 MMOL/L (24-32); TOTAL PROTEIN 5.3 G/DL (6.4-8.2); eGFR 5 ML/MIN
--- NOTE | 2022-06-22 17:37 | NUR ---
Pt advised that he does not take any home medication. Medication reconciliation completed.
[2022-06-22 17:45] LABS: BASOPHILS # (AUTO) 0.1 X10'3 (0-0.2); EOSINOPHILS # (AUTO) 0.8 X10'3 (0-0.9); EOSINOPHILS % (AUTO) 6.6 % (0-6); HEMATOCRIT 41.5 % (42.0-52.0); HEMOGLOBIN 14.1 g/dl (14.0-17.9); LYMPHOCYTES # (AUTO) 1.3 X10'3 (1.1-4.8); LYMPHOCYTES % (AUTO) 10.9 % (21-51); MEAN CORPUSCULAR HEMOGLOBIN 30.1 PG (27.0-31.0); MEAN CORPUSCULAR HGB CONC 33.9 g/dL (33.0-36.5); MEAN CORPUSCULAR VOLUME 88.9 FL (78-98); MONOCYTES # (AUTO) 1.6 X10'3 (0-0.9); MONOCYTES % (AUTO) 13.4 % (2-12); NEUTROPHILS # (AUTO) 8.3 X10'3 (1.8-7.7); NEUTROPHILS % (AUTO) 68.1 % (42-75); PLATELET COUNT 264 X10'3 (140-440); RED BLOOD COUNT 4.67 X10'6 (4.70-6.10); RED CELL DISTRIBUTION WIDTH 14.2 % (11.5-14.5); WHITE BLOOD COUNT 12.3 X10'3 (4.5-11.0)
[2022-06-22] MEDS ORDERED: potassium CL 10mEq/100ml bag 100 ML IV PRN (18:05)
[2022-06-22] MEDS ORDERED: magnesium 4gm in 100ml NS 100 ML IV PRN (18:05)
[2022-06-22] MEDS ORDERED: ondansetron/PF 4mg/2ml inj IV PRN (18:05)
[2022-06-22] MEDS ORDERED: POTASSIUM BICARB 20meq eff tab 20 MEQ TABLET.EFF PO PRN ×2 (18:05)
[2022-06-22] MEDS ORDERED: magnesium 2GM in 50ml NS 50 ML IV PRN (18:05)
[2022-06-22] MEDS ORDERED: magnesium Cl slow-release 64mg tablet PO PRN (18:05)
--- NOTE | 2022-06-22 18:59 | NUR ---
RN talked to pt again about getting lab drawn for Mg after pt refusing lab. Pt refused again.
--- NOTE | 2022-06-22 19:29 | NUR ---
pt resting, will take v/s Q2H per request
[2022-06-22] MEDS ORDERED: NO HOME MEDS (19:53)
[2022-06-22] MEDS: K and/or MAG REPLACEMENT MC SCH (20:00)
[2022-06-22 21:15] VITALS: BP 138/92
[2022-06-22 22:00] VITALS: BP 108/71
[2022-06-23] MEDS: acetaminophen 325mg tablet PO PRN (05:32)
[2022-06-23 05:56] LABS: BASOPHILS # (AUTO) 0.2 X10'3 (0-0.2); BASOPHILS % (AUTO) 1.2 % (0-1); EOSINOPHILS # (AUTO) 0.9 X10'3 (0-0.9); EOSINOPHILS % (AUTO) 6.5 % (0-6); HEMATOCRIT 39.7 % (42.0-52.0); HEMOGLOBIN 13.5 g/dl (14.0-17.9); LYMPHOCYTES # (AUTO) 1.2 X10'3 (1.1-4.8); MEAN CORPUSCULAR HEMOGLOBIN 30.1 PG (27.0-31.0); MEAN CORPUSCULAR VOLUME 88.6 FL (78-98); MEAN PLATELET VOLUME 8.7 FL (7.4-10.4); MONOCYTES # (AUTO) 1.5 X10'3 (0-0.9); MONOCYTES % (AUTO) 11.3 % (2-12); NEUTROPHILS # (AUTO) 9.8 X10'3 (1.8-7.7); PLATELET COUNT 261 X10'3 (140-440); RED BLOOD COUNT 4.48 X10'6 (4.70-6.10); RED CELL DISTRIBUTION WIDTH 13.8 % (11.5-14.5); WHITE BLOOD COUNT 13.6 X10'3 (4.5-11.0)
[2022-06-23 06:15] LABS: ALANINE AMINOTRANSFERASE 257 U/L (12-78); ALBUMIN 2.1 G/DL (3.4-5.0); ALBUMIN/GLOBULIN RATIO 0.7 (1.1-1.5); ALKALINE PHOSPHATASE 81 IU/L (46-116); ANION GAP 10 (8-16); ASPARTATE AMINO TRANSFERASE 123 U/L (10-37); BILIRUBIN,TOTAL 0.3 MG/DL (0.1-1.0); BLOOD UREA NITROGEN 70 MG/DL (7-18); BUN/CREATININE RATIO 6.1 (5.4-32.0); CALCIUM 8.1 MG/DL (8.5-10.1); CHLORIDE 102 MMOL/L (99-107); CREATININE 11.57 MG/DL (0.60-1.10); GLUCOSE 111 MG/DL (70-104); MAGNESIUM 2.2 MG/DL (1.5-2.4); PHOSPHORUS 6.7 MG/DL (2.3-4.5); POTASSIUM 4.6 MMOL/L (3.5-5.1); SODIUM 138 MMOL/L (135-145); TOTAL CARBON DIOXIDE 25.9 MMOL/L (24-32); TOTAL PROTEIN 5.1 G/DL (6.4-8.2); eGFR 5 ML/MIN
--- NOTE | 2022-06-23 06:29 | NUR ---
Problems reprioritized. Patient report given, questions answered & plan of care reviewed with SAVANNAH Wolfe.
[2022-06-23] MEDS ORDERED: heparin 1,000 units/ml 10ml inj IV ONE ×2 (08:00)
[2022-06-23] MEDS: K and/or MAG REPLACEMENT MC SCH ×2 (08:00→20:00)
[2022-06-23] MEDS ORDERED: albumin (human) 25% 100ml IV 100 ML IV PRN (08:00)
[2022-06-23] MEDS ORDERED: heparin 1,000 units/ml 10ml inj HE ONE ×2 (08:00)
[2022-06-23 10:00] VITALS: BP 143/88
[2022-06-23 18:00] VITALS: BP 143/89
[2022-06-23 22:00] VITALS: BP 139/83
[2022-06-24 06:00] VITALS: BP 138/76
[2022-06-24 06:38] LABS: BASOPHILS # (AUTO) 0.1 X10'3 (0-0.2); BASOPHILS % (AUTO) 0.7 % (0-1); EOSINOPHILS # (AUTO) 0.7 X10'3 (0-0.9); HEMATOCRIT 40.5 % (42.0-52.0); HEMOGLOBIN 13.8 g/dl (14.0-17.9); LYMPHOCYTES # (AUTO) 1.5 X10'3 (1.1-4.8); LYMPHOCYTES % (AUTO) 8.9 % (21-51); MEAN CORPUSCULAR HEMOGLOBIN 30.4 PG (27.0-31.0); MEAN CORPUSCULAR HGB CONC 34.1 g/dL (33.0-36.5); MEAN PLATELET VOLUME 7.9 FL (7.4-10.4); MONOCYTES # (AUTO) 1.4 X10'3 (0-0.9); MONOCYTES % (AUTO) 8.3 % (2-12); NEUTROPHILS # (AUTO) 13.2 X10'3 (1.8-7.7); NEUTROPHILS % (AUTO) 78.1 % (42-75); PLATELET COUNT 190 X10'3 (140-440); RED BLOOD COUNT 4.55 X10'6 (4.70-6.10); RED CELL DISTRIBUTION WIDTH 14.1 % (11.5-14.5); WHITE BLOOD COUNT 16.9 X10'3 (4.5-11.0)
[2022-06-24 06:57] LABS: ALANINE AMINOTRANSFERASE 200 U/L (12-78); ALBUMIN 2.2 G/DL (3.4-5.0); ALBUMIN/GLOBULIN RATIO 0.7 (1.1-1.5); ALKALINE PHOSPHATASE 80 IU/L (46-116); ANION GAP 13 (8-16); ASPARTATE AMINO TRANSFERASE 69 U/L (10-37); BILIRUBIN,TOTAL 0.3 MG/DL (0.1-1.0); BLOOD UREA NITROGEN 84 MG/DL (7-18); BUN/CREATININE RATIO 6.2 (5.4-32.0); CHLORIDE 100 MMOL/L (99-107); CREATININE 13.45 MG/DL (0.60-1.10); GLUCOSE 111 MG/DL (70-104); MAGNESIUM 2.2 MG/DL (1.5-2.4); PHOSPHORUS 6.7 MG/DL (2.3-4.5); POTASSIUM 4.9 MMOL/L (3.5-5.1); SODIUM 135 MMOL/L (135-145); TOTAL CARBON DIOXIDE 22.3 MMOL/L (24-32); TOTAL PROTEIN 5.3 G/DL (6.4-8.2); eGFR 4 ML/MIN
[2022-06-24] MEDS: K and/or MAG REPLACEMENT MC SCH ×2 (07:39→20:00)
[2022-06-24] MEDS ORDERED: heparin 1,000 units/ml 10ml inj HE ONE ×2 (08:00)
[2022-06-24] MEDS ORDERED: heparin 1,000unit/ml 10ml vial 10 ML IV ONE ×2 (08:00→11:00)
[2022-06-24] MEDS ORDERED: heparin 1,000 units/ml 10ml inj IV ONE ×2 (08:00→11:00)
[2022-06-24 10:00] VITALS: BP 148/97
[2022-06-24] MEDS ORDERED: tPA-cathflo 2 MG/2 ml IV flush IVF ONE (10:55)
[2022-06-24] MEDS: acetaminophen 325mg tablet PO PRN (12:37)
[2022-06-24] MEDS ORDERED: fentaNYL/PF 50MCG/1 ML 2ML syringe ONE (13:49)
[2022-06-24] MEDS ORDERED: heparin 1,000unit/ml 10ml vial 10 ML ONE (13:49)
[2022-06-24] MEDS ORDERED: ondansetron/PF 4mg/2ml inj ONE (14:01)
--- NOTE | 2022-06-24 14:45 | NUR ---
Case mgmt notified Dr Ha is requesting patient be placed with [facility] for HD.
--- NOTE | 2022-06-24 14:57 | NUR ---
Plan for HD tomorrow per dialysis nurse.
--- NOTE | 2022-06-24 16:19 | NUR ---
Patient refused blood draw, requested to have it retimed to am with other labs. He feels like a pin cushion and he's a difficult stick. Dr Sidhu stated to document refusal but she is not ok with retiming the lab.
[2022-06-24 18:00] VITALS: BP 145/88
--- NOTE | 2022-06-24 18:18 | NUR ---
Report to Yumi NUÑEZ
[2022-06-24 22:00] VITALS: BP 156/84
[2022-06-25 06:00] VITALS: BP 144/87
--- NOTE | 2022-06-25 06:48 | NUR ---
Patient in room ORTHO 4012. I have received report from Gregorio NUÑEZ and had the opportunity to ask questions and assume patient care.
[2022-06-25] MEDS: K and/or MAG REPLACEMENT MC SCH ×2 (08:00→20:00)
[2022-06-25] MEDS ORDERED: heparin 1,000 units/ml 10ml inj IV ONE (08:05)
[2022-06-25] MEDS ORDERED: heparin 1,000unit/ml 10ml vial 10 ML IV ONE (08:05)
[2022-06-25] MEDS ORDERED: heparin 1,000 units/ml 10ml inj HE ONE ×2 (08:10)
[2022-06-25 09:33] LABS: BASOPHILS # (AUTO) 0.1 X10'3 (0-0.2); BASOPHILS % (AUTO) 0.7 % (0-1); EOSINOPHILS # (AUTO) 0.6 X10'3 (0-0.9); EOSINOPHILS % (AUTO) 3.1 % (0-6); HEMATOCRIT 41.9 % (42.0-52.0); LYMPHOCYTES # (AUTO) 1.3 X10'3 (1.1-4.8); LYMPHOCYTES % (AUTO) 6.9 % (21-51); MEAN CORPUSCULAR HEMOGLOBIN 29.7 PG (27.0-31.0); MEAN CORPUSCULAR HGB CONC 33.4 g/dL (33.0-36.5); MEAN PLATELET VOLUME 7.5 FL (7.4-10.4); MONOCYTES # (AUTO) 1.4 X10'3 (0-0.9); MONOCYTES % (AUTO) 7.6 % (2-12); NEUTROPHILS # (AUTO) 14.9 X10'3 (1.8-7.7); NEUTROPHILS % (AUTO) 81.7 % (42-75); PLATELET COUNT 88 X10'3 (140-440); RED BLOOD COUNT 4.71 X10'6 (4.70-6.10); RED CELL DISTRIBUTION WIDTH 13.8 % (11.5-14.5); WHITE BLOOD COUNT 18.2 X10'3 (4.5-11.0)
[2022-06-25 09:44] LABS: ALANINE AMINOTRANSFERASE 176 U/L (12-78); ALBUMIN 2.6 G/DL (3.4-5.0); ALBUMIN/GLOBULIN RATIO 0.7 (1.1-1.5); ALKALINE PHOSPHATASE 95 IU/L (46-116); ANION GAP 13 (8-16); ASPARTATE AMINO TRANSFERASE 52 U/L (10-37); BILIRUBIN,TOTAL 0.3 MG/DL (0.1-1.0); BLOOD UREA NITROGEN 96 MG/DL (7-18); CALCIUM 8.3 MG/DL (8.5-10.1); CHLORIDE 97 MMOL/L (99-107); CREATININE 13.75 MG/DL (0.60-1.10); GLUCOSE 117 MG/DL (70-104); MAGNESIUM 2.2 MG/DL (1.5-2.4); PHOSPHORUS 7.2 MG/DL (2.3-4.5); POTASSIUM 4.6 MMOL/L (3.5-5.1); SODIUM 135 MMOL/L (135-145); TOTAL CARBON DIOXIDE 25.3 MMOL/L (24-32); TOTAL PROTEIN 6.1 G/DL (6.4-8.2); eGFR 4 ML/MIN
[2022-06-25 10:00] VITALS: BP 93/74
[2022-06-25] MEDS ORDERED: diphenhydrAMINE 50 mg/ml inj IV ONE ×2 (10:35)
--- NOTE | 2022-06-25 12:00 | NUR ---
Patient in room ORTHO 4012. I have received report from Malika and had the opportunity to ask questions and assume patient care.
[2022-06-25] MEDS: acetaminophen 325mg tablet PO PRN (13:45)
[2022-06-25 14:49] LABS: HBSAG SCREEN Negative (Negative)
--- NOTE | 2022-06-25 14:55 | NUR ---
PAGER ID: [phone] MESSAGE: [phone]. Pt. [id number] Asif, second diet order entered for regular diet. Can you confirm reg or renal?
[2022-06-25 18:00] VITALS: BP 129/81
--- NOTE | 2022-06-25 18:26 | NUR ---
Problems reprioritized. Patient report given, questions answered & plan of care reviewed with
[2022-06-25 22:00] VITALS: BP 140/84
--- NOTE | 2022-06-26 06:05 | NUR ---
Problems reprioritized. Patient report given, questions answered & plan of care reviewed with SAVANNAH Daly.
[2022-06-26 06:12] LABS: BASOPHILS # (AUTO) 0.1 X10'3 (0-0.2); EOSINOPHILS # (AUTO) 0.5 X10'3 (0-0.9); HEMOGLOBIN 13.2 g/dl (14.0-17.9); RED CELL DISTRIBUTION WIDTH 13.9 % (11.5-14.5)
[2022-06-26 06:14] LABS: BASOPHILS % (AUTO) 0.7 % (0-1); HEMATOCRIT 38.5 % (42.0-52.0); LYMPHOCYTES # (AUTO) 1.5 X10'3 (1.1-4.8); LYMPHOCYTES % (AUTO) 9.8 % (21-51); MEAN CORPUSCULAR HGB CONC 34.2 g/dL (33.0-36.5); MEAN CORPUSCULAR VOLUME 87.7 FL (78-98); MEAN PLATELET VOLUME 8.3 FL (7.4-10.4); MONOCYTES # (AUTO) 1.5 X10'3 (0-0.9); MONOCYTES % (AUTO) 9.4 % (2-12); NEUTROPHILS # (AUTO) 12.1 X10'3 (1.8-7.7); NEUTROPHILS % (AUTO) 77.1 % (42-75); PLATELET COUNT 57 X10'3 (140-440); RED BLOOD COUNT 4.39 X10'6 (4.70-6.10); WHITE BLOOD COUNT 15.6 X10'3 (4.5-11.0)
[2022-06-26 06:19] VITALS: BP 147/90
[2022-06-26 06:25] LABS: ALANINE AMINOTRANSFERASE 146 U/L (12-78); ALBUMIN 2.4 G/DL (3.4-5.0); ALBUMIN/GLOBULIN RATIO 0.7 (1.1-1.5); ALKALINE PHOSPHATASE 87 IU/L (46-116); ANION GAP 12 (8-16); ASPARTATE AMINO TRANSFERASE 36 U/L (10-37); BILIRUBIN,TOTAL 0.4 MG/DL (0.1-1.0); BLOOD UREA NITROGEN 68 MG/DL (7-18); BUN/CREATININE RATIO 6.2 (5.4-32.0); CALCIUM 8.3 MG/DL (8.5-10.1); CHLORIDE 98 MMOL/L (99-107); CREATININE 10.91 MG/DL (0.60-1.10); GLUCOSE 114 MG/DL (70-104); MAGNESIUM 1.9 MG/DL (1.5-2.4); POTASSIUM 5.3 MMOL/L (3.5-5.1); SODIUM 136 MMOL/L (135-145); TOTAL CARBON DIOXIDE 25.8 MMOL/L (24-32); TOTAL PROTEIN 5.9 G/DL (6.4-8.2); eGFR 5 ML/MIN
--- NOTE | 2022-06-26 06:28 | NUR ---
Patient in room ORTHO 4012. I have received report from Brisa NUÑEZ and had the opportunity to ask questions and assume patient care.
[2022-06-26] MEDS ORDERED: heparin 1,000unit/ml 10ml vial 10 ML IV ONE (07:45)
[2022-06-26] MEDS ORDERED: heparin 1,000 units/ml 10ml inj IV ONE (07:45)
[2022-06-26] MEDS ORDERED: heparin 1,000 units/ml 10ml inj HE ONE ×2 (07:50→08:50)
[2022-06-26] MEDS: K and/or MAG REPLACEMENT MC SCH (08:00)
--- NOTE | 2022-06-26 10:15 | NUR ---
Pt. [id number] pt. approached nurses station asking when he can leave, informed pt. that must wait for the doctor to put in discharge order and go over paperwork with him. Pt. stated that he wanted to leave now and did not want to wait a long time for the Dr. to put in order due to having people that he has to address issues with. Pt. educated about discharge process and that if he chooses to leave before DC order that he will need to sign AMA form. Pt. told nursing staff that he would wait 20 more minutes and then will leave before order. Nursing staff had pt. sign AMA form due to pt. verbalizing he would be leaving. Pt. agreed to sign AMA form, gathered all personal belongings and was escorted down by nursing staff to credit front office developer [facility] to collect wallet and belongings in safe. Pt. left the floor at 10:15am. AMA form signed and placed in chart. Charge nurse informed of the situation and nursing staff paged hospitalist to inform them of Pt. leave AMA.
--- NOTE | 2022-06-26 10:28 | NUR ---
Pt educated on scheduled dialysis appointment tomorrow 06/27/22 at 0630. Pt left in stable condition with TDC catheter c/d/i
== END 2022-06-26 10:15 | disposition left against medical advice (07) | DRG 206 ==
LOC: ER 14:22 → ED HOLD 18:03 → ORTHO 4S 21:10
PROVIDERS: ADMIT Internal Medicine; ATTEND Internal Medicine
PROC: 0J2TXYZ Change Other Device in Trunk Subcutaneous Tissue and Fascia, External Approach (ICD-10-PCS; principal; 2022-06-24)
PROC: 5A1D70Z Performance of Urinary Filtration, Intermittent, Less than 6 Hours Per Day (ICD-10-PCS; 2022-06-24)
PROC: 5A1D70Z Performance of Urinary Filtration, Intermittent, Less than 6 Hours Per Day (ICD-10-PCS; 2022-06-25)
DX: T82.868A Thrombosis due to vascular prosthetic devices, implants and grafts, initial encounter (principal); N17.0 Acute kidney failure with tubular necrosis; M62.82 Rhabdomyolysis; F17.210 Nicotine dependence, cigarettes, uncomplicated; F43.10 Post-traumatic stress disorder, unspecified; G89.29 Other chronic pain; M54.9 Dorsalgia, unspecified; R79.89 Other specified abnormal findings of blood chemistry; D72.829 Elevated white blood cell count, unspecified; B18.2 Chronic viral hepatitis C; F10.20 Alcohol dependence, uncomplicated; Y83.8 Other surgical procedures as the cause of abnormal reaction of the patient, or of later complication, without mention of misadventure at the time of the procedure; F15.20 Other stimulant dependence, uncomplicated; N18.6 End stage renal disease; Z53.29 Procedure and treatment not carried out because of patient's decision for other reasons; Z59.02 Unsheltered homelessness; Z99.2 Dependence on renal dialysis; Z88.2 Allergy status to sulfonamides; Z28.310 Unvaccinated for COVID-19; Y92.89 Other specified places as the place of occurrence of the external cause
CPT/HCPCS: 36415; 36581; 71045; 80053; 83735; 84100; 85025; 86705; 86706; 87081; 87340; 96374; 97116; 97161; 99285; A4620; A6258; A6402; A9270; C1750; C1769; G0257; G0378; J1200; J1644; J2405; J2997; J3010; J7030

== ENCOUNTER 2022-06-28 17:44 | Emergency (ER) | payer MEDICAID ==
[~2022-06-28] VITALS: Ht 175.3 cm; Wt 68.2 kg
[~2022-06-28 17:44] MED LIST changes: -ESCI5TAB PO; -GABA-530 PO; -HYDR-3686 PO; -NICO-907 BC; +NO HOME MEDS; -TRAZ-251 PO
[2022-06-28 17:50] VITALS: BP 142/119
[2022-06-28 22:34] LABS: BASOPHILS # (AUTO) 0.2 X10'3 (0-0.2); BASOPHILS % (AUTO) 1.1 % (0-1); EOSINOPHILS # (AUTO) 0.4 X10'3 (0-0.9); EOSINOPHILS % (AUTO) 2.4 % (0-6); HEMOGLOBIN 12.4 g/dl (14.0-17.9); LYMPHOCYTES # (AUTO) 1.4 X10'3 (1.1-4.8); LYMPHOCYTES % (AUTO) 8.6 % (21-51); MEAN CORPUSCULAR HEMOGLOBIN 29.9 PG (27.0-31.0); MEAN CORPUSCULAR HGB CONC 33.5 g/dL (33.0-36.5); MEAN CORPUSCULAR VOLUME 89.2 FL (78-98); MEAN PLATELET VOLUME 8.5 FL (7.4-10.4); MONOCYTES # (AUTO) 1.5 X10'3 (0-0.9); MONOCYTES % (AUTO) 9.3 % (2-12); NEUTROPHILS % (AUTO) 78.6 % (42-75); PLATELET COUNT 162 X10'3 (140-440); RED BLOOD COUNT 4.14 X10'6 (4.70-6.10); WHITE BLOOD COUNT 16.6 X10'3 (4.5-11.0)
[2022-06-28 22:48] LABS: ALANINE AMINOTRANSFERASE 120 U/L (12-78); ALBUMIN 3.4 G/DL (3.4-5.0); ALBUMIN/GLOBULIN RATIO 0.8 (1.1-1.5); ALKALINE PHOSPHATASE 121 IU/L (46-116); ANION GAP 18 (8-16); ASPARTATE AMINO TRANSFERASE 35 U/L (10-37); BILIRUBIN,TOTAL 0.5 MG/DL (0.1-1.0); BLOOD UREA NITROGEN 81 MG/DL (7-18); BUN/CREATININE RATIO 6.6 (5.4-32.0); CALCIUM 8.9 MG/DL (8.5-10.1); CHLORIDE 97 MMOL/L (99-107); CREATININE 12.24 MG/DL (0.60-1.10); GLUCOSE 107 MG/DL (70-104); POTASSIUM 3.9 MMOL/L (3.5-5.1); SODIUM 139 MMOL/L (135-145); TOTAL CARBON DIOXIDE 24.5 MMOL/L (24-32); TOTAL PROTEIN 7.5 G/DL (6.4-8.2); eGFR 4 ML/MIN
[2022-06-28 22:53] LABS: MAGNESIUM 1.9 MG/DL (1.5-2.4)
== END 2022-06-28 23:29 | disposition home or self-care (01) ==
LOC: ER 17:45
DX: N18.6 End stage renal disease (principal); Z99.2 Dependence on renal dialysis; F17.200 Nicotine dependence, unspecified, uncomplicated; F15.10 Other stimulant abuse, uncomplicated; G89.29 Other chronic pain; M54.9 Dorsalgia, unspecified; Z88.2 Allergy status to sulfonamides; Z79.899 Other long term (current) drug therapy
CPT/HCPCS: 36415; 71045; 80053; 83735; 84100; 85025; 99284

== ENCOUNTER 2022-06-30 01:01 | Emergency (ER) | payer MEDICAID ==
[~2022-06-30] VITALS: Ht 195.6 cm; Wt 69.5 kg
[2022-06-30 01:05] VITALS: BP 142/82
--- NOTE | 2022-06-30 01:39 | NUR ---
PT DIFFICULT STICK. NO PHLEBOTOMY AT NIGHT. LOBBY FULL OF PATIENTS WAITING FOR A ROOM. WAS ONLY ABLE TO DRAW A CMP AT THIS TIME IN TRIAGE ROOM.
[2022-06-30 03:13] LABS: ALANINE AMINOTRANSFERASE 103 U/L (12-78); ALBUMIN 3.4 G/DL (3.4-5.0); ALBUMIN/GLOBULIN RATIO 0.9 (1.1-1.5); ALKALINE PHOSPHATASE 121 IU/L (46-116); ANION GAP 19 (8-16); ASPARTATE AMINO TRANSFERASE 21 U/L (10-37); BILIRUBIN,TOTAL 0.3 MG/DL (0.1-1.0); BLOOD UREA NITROGEN 77 MG/DL (7-18); BUN/CREATININE RATIO 7.5 (5.4-32.0); CALCIUM 8.6 MG/DL (8.5-10.1); CHLORIDE 96 MMOL/L (99-107); CREATININE 10.31 MG/DL (0.60-1.10); GLUCOSE 94 MG/DL (70-104); POTASSIUM 4.3 MMOL/L (3.5-5.1); SODIUM 141 MMOL/L (135-145); TOTAL PROTEIN 7.4 G/DL (6.4-8.2); eGFR 5 ML/MIN
[2022-06-30 07:21] LABS: BASOPHILS # (AUTO) 0.2 X10'3 (0-0.2); BASOPHILS % (AUTO) 1.2 % (0-1); EOSINOPHILS # (AUTO) 0.4 X10'3 (0-0.9); EOSINOPHILS % (AUTO) 2.8 % (0-6); HEMATOCRIT 35.3 % (42.0-52.0); HEMOGLOBIN 11.9 g/dl (14.0-17.9); LYMPHOCYTES # (AUTO) 1.3 X10'3 (1.1-4.8); LYMPHOCYTES % (AUTO) 10.3 % (21-51); MEAN CORPUSCULAR HEMOGLOBIN 29.8 PG (27.0-31.0); MEAN CORPUSCULAR HGB CONC 33.6 g/dL (33.0-36.5); MEAN CORPUSCULAR VOLUME 88.7 FL (78-98); MEAN PLATELET VOLUME 8.6 FL (7.4-10.4); MONOCYTES # (AUTO) 1.2 X10'3 (0-0.9); MONOCYTES % (AUTO) 9.1 % (2-12); NEUTROPHILS # (AUTO) 9.8 X10'3 (1.8-7.7); NEUTROPHILS % (AUTO) 76.6 % (42-75); PLATELET COUNT 237 X10'3 (140-440); RED BLOOD COUNT 3.98 X10'6 (4.70-6.10); RED CELL DISTRIBUTION WIDTH 13.8 % (11.5-14.5); WHITE BLOOD COUNT 12.8 X10'3 (4.5-11.0)
== END 2022-06-30 13:15 | disposition left against medical advice (07) ==
LOC: ER 01:02
DX: N23 Unspecified renal colic (principal); Z53.21 Procedure and treatment not carried out due to patient leaving prior to being seen by health care provider
CPT/HCPCS: 36415; 80053; 85025

== ENCOUNTER 2022-07-01 00:05 | Inpatient (IN) | payer MEDICAID ==
[~2022-07-01] VITALS: Ht 182.9 cm; Wt 68.3 kg
[2022-07-01 07:32] LABS: CLARITY,URINE CLEAR (Clear); COLOR,URINE YELLOW (Yellow); GLUCOSE, URINE NEGATIVE (Neg); KETONES,URINE NEGATIVE (Neg); LEUKOCYTE ESTERASE ,URINE TRACE (Neg); NITRITES, URINE NEGATIVE (Neg); OCCULT BLOOD,URINE MODERATE (Neg); PROTEIN,URINE 30 mg/dl (Neg); UROBILINOGEN,URINE 0.2 E.U/dL (0.2-1.0)
[2022-07-01 07:35] LABS: BASOPHILS # (AUTO) 0.2 X10'3 (0-0.2); BASOPHILS % (AUTO) 0.7 % (0-1); EOSINOPHILS % (AUTO) 0.1 % (0-6); HEMATOCRIT 32.9 % (42.0-52.0); HEMOGLOBIN 11.1 g/dl (14.0-17.9); LYMPHOCYTES # (AUTO) 0.3 X10'3 (1.1-4.8); LYMPHOCYTES % (AUTO) 1.2 % (21-51); MEAN CORPUSCULAR HEMOGLOBIN 29.4 PG (27.0-31.0); MEAN CORPUSCULAR HGB CONC 33.6 g/dL (33.0-36.5); MEAN CORPUSCULAR VOLUME 87.4 FL (78-98); MEAN PLATELET VOLUME 7.7 FL (7.4-10.4); MONOCYTES # (AUTO) 1.8 X10'3 (0-0.9); MONOCYTES % (AUTO) 6.3 % (2-12); NEUTROPHILS % (AUTO) 91.7 % (42-75); PLATELET COUNT 220 X10'3 (140-440); RED BLOOD COUNT 3.76 X10'6 (4.70-6.10); RED CELL DISTRIBUTION WIDTH 13.5 % (11.5-14.5)
[2022-07-01 07:45] LABS: ANION GAP 16 (8-16); BLOOD UREA NITROGEN 73 MG/DL (7-18); BUN/CREATININE RATIO 8.3 (5.4-32.0); CALCIUM 8.6 MG/DL (8.5-10.1); CHLORIDE 99 MMOL/L (99-107); CREATININE 8.79 MG/DL (0.60-1.10); GLUCOSE 141 MG/DL (70-104); SODIUM 139 MMOL/L (135-145); TOTAL CARBON DIOXIDE 23.9 MMOL/L (24-32); eGFR 6 ML/MIN
[2022-07-01 07:46] LABS: ALANINE AMINOTRANSFERASE 69 U/L (12-78); ALBUMIN 3.3 G/DL (3.4-5.0); ALBUMIN/GLOBULIN RATIO 0.9 (1.1-1.5); ALKALINE PHOSPHATASE 109 IU/L (46-116); ASPARTATE AMINO TRANSFERASE 23 U/L (10-37); BILIRUBIN,TOTAL 0.6 MG/DL (0.1-1.0); TOTAL PROTEIN 7.1 G/DL (6.4-8.2)
[2022-07-01 07:47] LABS: WHITE BLOOD COUNT 28.3 X10'3 (4.5-11.0)
[2022-07-01 07:49] LABS: MAGNESIUM 1.6 MG/DL (1.5-2.4)
[2022-07-01 07:50] LABS: UA COLLECTION TYPE VOIDED
[2022-07-01] MEDS ORDERED: vancomycin/NS 1 GM ADD-VANTAGE 250 ML IV ONE (07:50)
[2022-07-01 07:57] LABS: WBC,URINE 20-30 /HPF (0-4)
[2022-07-01 07:58] LABS: BACTERIA,URINE FEW /HPF (Neg); MUCUS STRANDS NONE SEEN /LPF (Neg); SQUAMOUS EPITHELIAL CELL,UR FEW /LPF (FEW)
[2022-07-01 07:59] LABS: CELLULAR CAST 0-4 /LPF (NEGATIVE)
[2022-07-01] MEDS ORDERED: ciprofloxacin/D5W 200mg/100mL 100 ML IV ONE (08:30)
[2022-07-01 08:39] LABS: PLATELET ESTIMATE NORMAL; TOTAL CELLS COUNTED 100
[2022-07-01] MEDS ORDERED: cefepime 1GM/NS ADD-VANTAGE 100 ML IV ONE (09:20)
[2022-07-01] MEDS ORDERED: vancomycin inj 500 MG in normal saline 100ml IV soln 100 ML IV ONE (09:40)
--- NOTE | 2022-07-01 09:45 | NUR ---
DR ROPER AND VAN AT BEDSIDE .
[2022-07-01] MEDS ORDERED: magnesium hydroxide 30ml (MOM) UD suspension PO PRN (09:50)
[2022-07-01] MEDS ORDERED: morphine 2 MG/ML inj. syringe IV PRN ×2 (09:50)
[2022-07-01] MEDS ORDERED: acetaminophen 325mg tablet PO PRN (09:50)
[2022-07-01] MEDS ORDERED: normal saline 1000ml 1,000 ML IV ONE ×2 (10:00)
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
[2022-07-01] MEDS: docusate sod 100mg capsule PO SCH (20:37)
--- NOTE | 2022-07-01 20:38 | NUR ---
NOTIFIED DR MOSS OF BLOOD CULTURE RIGHT WRIST RESULT OF GRAM + COCCI IN CLUSTERS, NONEW ORDERS. PT IS ALREADY RECIEVING ANTIBIOTIC TREATMENT
[2022-07-01 21:32] VITALS: BP 154/88
[2022-07-02 06:00] VITALS: BP 115/71
--- NOTE | 2022-07-02 06:47 | NUR ---
Patient in room IVA 344. I have received report from SAVANNAH Rahman and had the opportunity to ask questions and assume patient care.
[2022-07-02] MEDS: docusate sod 100mg capsule PO SCH ×3 (08:00→20:20)
[2022-07-02] MEDS ORDERED: vancomycin/NS 1 GM ADD-VANTAGE 250 ML IV SCH (08:00)
[2022-07-02 08:27] LABS: BASOPHILS # (AUTO) 0.1 X10'3 (0-0.2); HEMOGLOBIN 10.9 g/dl (14.0-17.9); LYMPHOCYTES # (AUTO) 0.6 X10'3 (1.1-4.8); MEAN PLATELET VOLUME 7.8 FL (7.4-10.4); MONOCYTES % (AUTO) 3.9 % (2-12); RED CELL DISTRIBUTION WIDTH 13.5 % (11.5-14.5)
[2022-07-02 08:28] LABS: BASOPHILS % (AUTO) 0.7 % (0-1); EOSINOPHILS # (AUTO) 0.1 X10'3 (0-0.9); EOSINOPHILS % (AUTO) 0.3 % (0-6); HEMATOCRIT 32.6 % (42.0-52.0); LYMPHOCYTES % (AUTO) 3.3 % (21-51); MEAN CORPUSCULAR HEMOGLOBIN 29.5 PG (27.0-31.0); MEAN CORPUSCULAR HGB CONC 33.4 g/dL (33.0-36.5); MEAN CORPUSCULAR VOLUME 88.4 FL (78-98); MONOCYTES # (AUTO) 0.7 X10'3 (0-0.9); NEUTROPHILS # (AUTO) 17.8 X10'3 (1.8-7.7); NEUTROPHILS % (AUTO) 91.8 % (42-75); PLATELET COUNT 153 X10'3 (140-440); RED BLOOD COUNT 3.69 X10'6 (4.70-6.10); WHITE BLOOD COUNT 19.3 X10'3 (4.5-11.0)
[2022-07-02] MEDS: cefepime 1GM/NS ADD-VANTAGE 100 ML IV SCH (08:31)
[2022-07-02 08:37] LABS: ALBUMIN 2.6 G/DL (3.4-5.0); ANION GAP 12 (8-16); BLOOD UREA NITROGEN 66 MG/DL (7-18); BUN/CREATININE RATIO 9.8 (5.4-32.0); CALCIUM 8.6 MG/DL (8.5-10.1); CHLORIDE 100 MMOL/L (99-107); CREATININE 6.74 MG/DL (0.60-1.10); GLUCOSE 117 MG/DL (70-104); POTASSIUM 3.4 MMOL/L (3.5-5.1); SODIUM 136 MMOL/L (135-145); TOTAL CARBON DIOXIDE 23.8 MMOL/L (24-32); VANCOMYCIN,RANDOM 10.9 UG/ML; eGFR 9 ML/MIN
[2022-07-02] MEDS: normal saline 1000ml 1,000 ML IV SCH ×2 (09:55→17:46)
[2022-07-02 11:00] VITALS: BP 104/68
--- NOTE | 2022-07-02 18:40 | NUR ---
Patient in room IVA 344. I have received report from SAVANNAH Chaney and had the opportunity to ask questions and assume patient care.
--- NOTE | 2022-07-02 18:53 | NUR ---
Problems reprioritized. Patient report given, questions answered & plan of care reviewed with Karin Harry RN. Addendum: 07/02/22 at 1859 by Ritu Lima RN report given to SAVANNAH Ledezma RN
[2022-07-02 20:00] VITALS: BP 123/75
[2022-07-02] MEDS: heparin, porcine 5000 units/ml vial SQ SCH ×2 (20:00→20:20)
[2022-07-03] VITALS: BP 121/55
[2022-07-03] MEDS ORDERED: VANCOMYCIN LEVEL IV SCH (03:00)
[2022-07-03 06:09] LABS: BASOPHILS # (AUTO) 0.1 X10'3 (0-0.2); BASOPHILS % (AUTO) 1.4 % (0-1); EOSINOPHILS # (AUTO) 0.2 X10'3 (0-0.9); EOSINOPHILS % (AUTO) 1.8 % (0-6); HEMATOCRIT 34.7 % (42.0-52.0); HEMOGLOBIN 11.5 g/dl (14.0-17.9); LYMPHOCYTES # (AUTO) 0.9 X10'3 (1.1-4.8); LYMPHOCYTES % (AUTO) 8.2 % (21-51); MEAN CORPUSCULAR HEMOGLOBIN 29.6 PG (27.0-31.0); MEAN CORPUSCULAR HGB CONC 33.3 g/dL (33.0-36.5); MEAN CORPUSCULAR VOLUME 89.1 FL (78-98); MEAN PLATELET VOLUME 8.7 FL (7.4-10.4); MONOCYTES % (AUTO) 9.7 % (2-12); NEUTROPHILS # (AUTO) 8.3 X10'3 (1.8-7.7); NEUTROPHILS % (AUTO) 78.9 % (42-75); PLATELET COUNT 145 X10'3 (140-440); RED BLOOD COUNT 3.89 X10'6 (4.70-6.10); RED CELL DISTRIBUTION WIDTH 13.6 % (11.5-14.5); WHITE BLOOD COUNT 10.5 X10'3 (4.5-11.0)
[2022-07-03 06:10] LABS: ALBUMIN 2.5 G/DL (3.4-5.0); ANION GAP 10 (8-16); BLOOD UREA NITROGEN 57 MG/DL (7-18); BUN/CREATININE RATIO 11.9 (5.4-32.0); CALCIUM 9.1 MG/DL (8.5-10.1); CHLORIDE 98 MMOL/L (99-107); CREATININE 4.77 MG/DL (0.60-1.10); GLUCOSE 163 MG/DL (70-104); POTASSIUM 3.3 MMOL/L (3.5-5.1); SODIUM 135 MMOL/L (135-145); TOTAL CARBON DIOXIDE 27.5 MMOL/L (24-32); VANCOMYCIN,RANDOM 16.8 UG/ML; eGFR 13 ML/MIN
--- NOTE | 2022-07-03 06:23 | NUR ---
Problems reprioritized. Patient report given, questions answered & plan of care reviewed with SAVANNAH Greer and SAVANNAH Chaney.
--- NOTE | 2022-07-03 07:11 | NUR ---
Patient in room IVA 344. I have received report from Brsia NUÑEZ and had the opportunity to ask questions and assume patient care.
[2022-07-03 07:18] VITALS: BP 123/72
[2022-07-03] MEDS: cefepime 1GM/NS ADD-VANTAGE 100 ML IV SCH (07:57)
[2022-07-03] MEDS: docusate sod 100mg capsule PO SCH ×2 (07:57→19:40)
[2022-07-03] MEDS: heparin, porcine 5000 units/ml vial SQ SCH ×2 (07:58→19:40)
[2022-07-03] MEDS ORDERED: vancomycin/NS 1 GM ADD-VANTAGE 250 ML IV PRN (08:00)
[2022-07-03] MEDS ORDERED: potassium Cl 20 mEq SR tablet PO ONE (08:05)
[2022-07-03] MEDS ORDERED: vancomycin inj 500 MG in normal saline 100ml IV soln 100 ML IV PRN (09:05)
--- NOTE | 2022-07-03 09:35 | NUR ---
Colace found at bedside after administration.
[2022-07-03 12:00] VITALS: BP 120/74
--- NOTE | 2022-07-03 15:45 | NUR ---
Paged Dr. Aldrich Re: 344B [place] Blood cultures resulted. Showed GRAM POSITIVE COCCI IN CLUSTERS SEEN IN AEROBIC BOTTLE detected in 26.39 from both Right and Left hand blood draws. Please advise, [facility] [phone]
--- NOTE | 2022-07-03 18:21 | NUR ---
Problems reprioritized. Patient report given, questions answered & plan of care reviewed with Apolonia NUÑEZ.
--- NOTE | 2022-07-03 18:37 | NUR ---
Patient in room IVA 344. I have received report from SAVANNHA Chaney and had the opportunity to ask questions and assume patient care.
[2022-07-03 20:00] VITALS: BP 104/61
[2022-07-04] VITALS: BP 114/72
--- NOTE | 2022-07-04 06:39 | NUR ---
Problems reprioritized. Patient report given, questions answered & plan of care reviewed with SAVANNAH Chaney.
--- NOTE | 2022-07-04 06:45 | NUR ---
Patient in room VIA 344. I have received report from Apolonia NUÑEZ and had the opportunity to ask questions and assume patient care.
[2022-07-04] MEDS: docusate sod 100mg capsule PO SCH ×2 (08:00→19:58)
[2022-07-04] MEDS: heparin, porcine 5000 units/ml vial SQ SCH ×2 (08:05→19:58)
[2022-07-04 08:17] LABS: EOSINOPHILS # (AUTO) 0.2 X10'3 (0-0.9); LYMPHOCYTES # (AUTO) 1.4 X10'3 (1.1-4.8); LYMPHOCYTES % (AUTO) 12.6 % (21-51); RED CELL DISTRIBUTION WIDTH 13.4 % (11.5-14.5)
[2022-07-04 08:19] LABS: BASOPHILS % (AUTO) 0.4 % (0-1); EOSINOPHILS % (AUTO) 1.6 % (0-6); HEMATOCRIT 35.4 % (42.0-52.0); MEAN CORPUSCULAR HEMOGLOBIN 29.9 PG (27.0-31.0); MEAN CORPUSCULAR HGB CONC 33.9 g/dL (33.0-36.5); MEAN CORPUSCULAR VOLUME 88.2 FL (78-98); MEAN PLATELET VOLUME 9.2 FL (7.4-10.4); MONOCYTES # (AUTO) 1.9 X10'3 (0-0.9); MONOCYTES % (AUTO) 17.2 % (2-12); NEUTROPHILS # (AUTO) 7.6 X10'3 (1.8-7.7); NEUTROPHILS % (AUTO) 68.2 % (42-75); PLATELET COUNT 144 X10'3 (140-440); RED BLOOD COUNT 4.01 X10'6 (4.70-6.10); WHITE BLOOD COUNT 11.1 X10'3 (4.5-11.0)
[2022-07-04 08:42] LABS: ANION GAP 11 (8-16); BLOOD UREA NITROGEN 49 MG/DL (7-18); BUN/CREATININE RATIO 13.7 (5.4-32.0); CHLORIDE 100 MMOL/L (99-107); CREATININE 3.58 MG/DL (0.60-1.10); GLUCOSE 125 MG/DL (70-104); POTASSIUM 3.5 MMOL/L (3.5-5.1); SODIUM 139 MMOL/L (135-145); TOTAL CARBON DIOXIDE 27.6 MMOL/L (24-32)
[2022-07-04 08:43] LABS: ALBUMIN 2.7 G/DL (3.4-5.0); CALCIUM 9.1 MG/DL (8.5-10.1); eGFR 18 ML/MIN
[2022-07-04 08:53] VITALS: BP 106/75
[2022-07-04 12:17] VITALS: BP 99/63
[2022-07-04] MEDS: ondansetron/PF 4mg/2ml inj IV PRN (17:16)
[2022-07-04] MEDS: HYDROcodone/acetaminophen 5mg/325mg tablet PO PRN (17:22)
[2022-07-04 18:00] VITALS: BP 114/81
--- NOTE | 2022-07-04 18:28 | NUR ---
Problems reprioritized. Patient report given, questions answered & plan of care reviewed with Prudence RN.
--- NOTE | 2022-07-04 18:57 | NUR ---
Patient in room IVA 344. I have received report from SYEDA NUÑEZ AND RITESH NUÑEZ and had the opportunity to ask questions and assume patient care.
[2022-07-05] VITALS: BP 112/75
[2022-07-05] MEDS: HYDROcodone/acetaminophen 5mg/325mg tablet PO PRN (00:02)
[2022-07-05 06:00] VITALS: BP 90/58
--- NOTE | 2022-07-05 06:43 | NUR ---
Problems reprioritized. Patient report given, questions answered & plan of care reviewed with LATOSHA NUÑEZ.
[2022-07-05 07:37] LABS: ALBUMIN 2.7 G/DL (3.4-5.0); ANION GAP 10 (8-16); BLOOD UREA NITROGEN 50 MG/DL (7-18); BUN/CREATININE RATIO 17.4 (5.4-32.0); CALCIUM 9.1 MG/DL (8.5-10.1); CHLORIDE 100 MMOL/L (99-107); CREATININE 2.87 MG/DL (0.60-1.10); GLUCOSE 124 MG/DL (70-104); POTASSIUM 3.6 MMOL/L (3.5-5.1); SODIUM 138 MMOL/L (135-145); TOTAL CARBON DIOXIDE 27.9 MMOL/L (24-32); eGFR 23 ML/MIN
[2022-07-05 07:41] LABS: EOSINOPHILS # (AUTO) 0.3 X10'3 (0-0.9); MONOCYTES % (AUTO) 18.3 % (2-12); RED CELL DISTRIBUTION WIDTH 13.5 % (11.5-14.5); WHITE BLOOD COUNT 10.7 X10'3 (4.5-11.0)
[2022-07-05 07:42] LABS: BASOPHILS % (AUTO) 0.4 % (0-1); EOSINOPHILS % (AUTO) 3.2 % (0-6); HEMATOCRIT 36.1 % (42.0-52.0); HEMOGLOBIN 12.2 g/dl (14.0-17.9); LYMPHOCYTES # (AUTO) 1.8 X10'3 (1.1-4.8); LYMPHOCYTES % (AUTO) 16.4 % (21-51); MEAN CORPUSCULAR HEMOGLOBIN 29.9 PG (27.0-31.0); MEAN CORPUSCULAR HGB CONC 33.7 g/dL (33.0-36.5); MEAN CORPUSCULAR VOLUME 88.7 FL (78-98); NEUTROPHILS # (AUTO) 6.6 X10'3 (1.8-7.7); NEUTROPHILS % (AUTO) 61.7 % (42-75); PLATELET COUNT 154 X10'3 (140-440); RED BLOOD COUNT 4.07 X10'6 (4.70-6.10)
[2022-07-05] MEDS ORDERED: clindamycin 300mg/D5W 50mL 50 ML IV SCH (08:00)
[2022-07-05] MEDS: heparin, porcine 5000 units/ml vial SQ SCH ×3 (08:00→20:00)
[2022-07-05] MEDS: docusate sod 100mg capsule PO SCH ×2 (08:00→20:00)
[2022-07-05] MEDS: acetaminophen 325mg tablet PO PRN (08:27)
--- NOTE | 2022-07-05 09:07 | NUR ---
Reassessment: Pt continues on renal diet and eating well, documented with mostly 100% PO intake. Noted pt continues to not receive dialysis and per nephrology note renal function is continuing to improve. Nephrology note also states pt with no signs of sepsis and requests Gatorade and high salt diet. TC to RN with recommendation for diet liberalization to regular as current diet limits electrolytes, RN to d/w flag signalman. Per RN pt has been requesting second meal trays d/t hunger following meals. D/w dietary to send double protein with meals for satiety. LBM 07/04. Will continue to follow. Recommendations: 1. Liberalize to regular diet 2. Double eggs WB, double meat BIDLD for satiety; Gatorade upon request per flag signalman 3. Bowel care per rx 4. Scaled weight this admit; subsequent weekly scaled weights Addendum: 07/05/22 at [address] Amended: Links added.
[2022-07-05] MEDS ORDERED: ceFAZolin/D5W- 1GM premix 50 ML IV SCH (10:15)
[2022-07-05] MEDS: normal saline 1000ml 1,000 ML IV SCH (10:15)
[2022-07-05 10:54] VITALS: BP 104/73
--- NOTE | 2022-07-05 16:24 | NUR ---
Patient refusing to be hooked up continuosly with NS @ 20. Patient states we can only hook him up for antibiotics per inclusion intern Steve.
--- NOTE | 2022-07-05 16:35 | NUR ---
Was called into patients room because he was being vocal and using foul language about the fact that he has been hooked up to his IV running at a slow rate all day. Patient very upset and fixated on the fact that he is getting Na in his IV. I tried to explain to patient that the reason he is hooked up to NS @20ml's/hr is to preserve his IV and to make sure that he gets every drop of his antibiotic. Patient was yelling and flailing his arms and very upset. I advised patient that he has the right to refuse the Normal saline being hooked up at all times, and take the chance of his IV going bad and not getting every drop of antibiotic. Patient was yelling at me that he wants a 2nd opinion about his sodium. I advised Dr Ha wants him to be on high NA diet and to drink 2L of Gatorade a day. I advised patient that Dr Ha will be back tomorrow and he could discuss the sodium issue in the am. Patient was again asked if he would like me to hook him back up to his IV fluids or remain saline locked. Patient stated he would like to think about it. I advised him to call me when he decides and I would be happy to do what he requests.
[2022-07-05 18:00] VITALS: BP 118/65
[2022-07-05] MEDS: ceFAZolin/D5W- 1GM premix 50 ML IV SCH (18:05)
[2022-07-05] MEDS: ondansetron/PF 4mg/2ml inj IV PRN (18:09)
--- NOTE | 2022-07-05 18:34 | NUR ---
Patient in room IVA 344. I have received report from LATOSHA NUÑEZ and had the opportunity to ask questions and assume patient care.
--- NOTE | 2022-07-05 18:58 | NUR ---
Problems reprioritized. Patient report given, questions answered & plan of care reviewed with Prudence RN.
[2022-07-06] VITALS: BP 115/71
[2022-07-06] MEDS: ceFAZolin/D5W- 1GM premix 50 ML IV SCH ×3 (02:21→18:20)
[2022-07-06 06:00] VITALS: BP 100/61
--- NOTE | 2022-07-06 06:18 | NUR ---
Problems reprioritized. Patient report given with Ayala RN, questions answered & plan of care reviewed with Julia NUÑEZ.
--- NOTE | 2022-07-06 06:32 | NUR ---
Problems reprioritized. Patient report given, questions answered & plan of care reviewed with ISADORA NUÑEZ.
--- NOTE | 2022-07-06 07:02 | NUR ---
Patient in room IVA 344B. I have received report from SAVANNAH SMART and had the opportunity to ask questions and assume patient care.
[2022-07-06 07:26] LABS: BASOPHILS # (AUTO) 0.2 X10'3 (0-0.2); BASOPHILS % (AUTO) 1.5 % (0-1); EOSINOPHILS # (AUTO) 0.4 X10'3 (0-0.9); EOSINOPHILS % (AUTO) 3.6 % (0-6); LYMPHOCYTES % (AUTO) 16.1 % (21-51); MEAN CORPUSCULAR HEMOGLOBIN 28.9 PG (27.0-31.0); MEAN CORPUSCULAR HGB CONC 33.3 g/dL (33.0-36.5); MEAN CORPUSCULAR VOLUME 86.6 FL (78-98); MONOCYTES # (AUTO) 1.7 X10'3 (0-0.9); NEUTROPHILS # (AUTO) 7.9 X10'3 (1.8-7.7); NEUTROPHILS % (AUTO) 64.8 % (42-75); PLATELET COUNT 190 X10'3 (140-440); RED BLOOD COUNT 4.15 X10'6 (4.70-6.10); RED CELL DISTRIBUTION WIDTH 13.3 % (11.5-14.5); WHITE BLOOD COUNT 12.2 X10'3 (4.5-11.0)
[2022-07-06 07:34] LABS: ALBUMIN 2.6 G/DL (3.4-5.0); ANION GAP 10 (8-16); BLOOD UREA NITROGEN 44 MG/DL (7-18); CALCIUM 8.9 MG/DL (8.5-10.1); CHLORIDE 101 MMOL/L (99-107); CREATININE 2.31 MG/DL (0.60-1.10); GLUCOSE 120 MG/DL (70-104); POTASSIUM 3.7 MMOL/L (3.5-5.1); SODIUM 138 MMOL/L (135-145); TOTAL CARBON DIOXIDE 27.4 MMOL/L (24-32); eGFR 30 ML/MIN
[2022-07-06 10:00] VITALS: BP 112/71
[2022-07-06] MEDS: heparin, porcine 5000 units/ml vial SQ SCH ×2 (10:05→19:47)
[2022-07-06] MEDS: docusate sod 100mg capsule PO SCH ×2 (10:05→19:43)
[2022-07-06 18:00] VITALS: BP 117/79
--- NOTE | 2022-07-06 18:50 | NUR ---
Patient in room IVA 344. I have received report from Julia NUÑEZ and had the opportunity to ask questions and assume patient care.
--- NOTE | 2022-07-06 19:20 | NUR ---
Problems reprioritized. Patient report given, questions answered & plan of care reviewed with SAVANNAH BAILEY.
--- NOTE | 2022-07-06 22:00 | NUR ---
Patient refused to allow for 2nd set of vital signs to be taken.
[2022-07-07] MEDS: ceFAZolin/D5W- 1GM premix 50 ML IV SCH ×3 (01:47→18:24)
--- NOTE | 2022-07-07 05:33 | NUR ---
Sent fax to dietary for double portions and also to send gatorades if we have them (per Md). Also called and spoke to video camera operator who will let security and admin know that patient would like his wallet up here.
--- NOTE | 2022-07-07 05:35 | NUR ---
Patient refuses to stay NS TKO per orders. Patient requests to be disconnected from IV.
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
--- NOTE | 2022-07-07 06:51 | NUR ---
Patient in room IVA 344B. I have received report from SAVANNAH BAILEY and had the opportunity to ask questions and assume patient care.
[2022-07-07] MEDS: acetaminophen 325mg tablet PO PRN (07:09)
[2022-07-07] MEDS: docusate sod 100mg capsule PO SCH ×2 (07:09→19:58)
[2022-07-07] MEDS: heparin, porcine 5000 units/ml vial SQ SCH ×2 (08:00→19:58)
[2022-07-07 10:00] VITALS: BP 94/56
[2022-07-07] MEDS: normal saline 1000ml 1,000 ML IV SCH (10:15)
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
[2022-07-07 15:03] LABS: ALBUMIN 2.6 G/DL (3.4-5.0); ANION GAP 7 (8-16); BLOOD UREA NITROGEN 46 MG/DL (7-18); BUN/CREATININE RATIO 21.4 (5.4-32.0); CALCIUM 8.7 MG/DL (8.5-10.1); CHLORIDE 102 MMOL/L (99-107); CREATININE 2.15 MG/DL (0.60-1.10); GLUCOSE 123 MG/DL (70-104); POTASSIUM 3.7 MMOL/L (3.5-5.1); SODIUM 137 MMOL/L (135-145); TOTAL CARBON DIOXIDE 27.8 MMOL/L (24-32); eGFR 32 ML/MIN
[2022-07-07 18:00] VITALS: BP 119/72
--- NOTE | 2022-07-07 18:30 | NUR ---
Patient in room IVA 344. I have received report from Julia NUÑEZ and had the opportunity to ask questions and assume patient care.
--- NOTE | 2022-07-07 18:47 | NUR ---
Problems reprioritized. Patient report given, questions answered & plan of care reviewed with SAVANNAH BAILEY.
[2022-07-08] MEDS: ceFAZolin/D5W- 1GM premix 50 ML IV SCH ×3 (02:12→17:30)
[2022-07-08 06:00] VITALS: BP 104/64
--- NOTE | 2022-07-08 06:00 | NUR ---
Patient refused his HS heparin shot and colace last night.
--- NOTE | 2022-07-08 06:10 | NUR ---
Problems reprioritized. Patient report given, questions answered & plan of care reviewed with Julia NUÑEZ.
[2022-07-08 06:42] LABS: ALBUMIN 2.7 G/DL (3.4-5.0); ANION GAP 6 (8-16); BLOOD UREA NITROGEN 42 MG/DL (7-18); BUN/CREATININE RATIO 19.2 (5.4-32.0); CALCIUM 8.8 MG/DL (8.5-10.1); CHLORIDE 104 MMOL/L (99-107); CREATININE 2.19 MG/DL (0.60-1.10); GLUCOSE 112 MG/DL (70-104); POTASSIUM 3.9 MMOL/L (3.5-5.1); SODIUM 137 MMOL/L (135-145); TOTAL CARBON DIOXIDE 27.1 MMOL/L (24-32); eGFR 32 ML/MIN
[2022-07-08] MEDS: heparin, porcine 5000 units/ml vial SQ SCH ×2 (08:00→20:00)
[2022-07-08] MEDS: docusate sod 100mg capsule PO SCH ×2 (08:00→20:00)
[2022-07-08 10:00] VITALS: BP 115/81
[2022-07-08 18:00] VITALS: BP 134/86
--- NOTE | 2022-07-08 18:30 | NUR ---
Patient in room IVA 344. I have received report from Julia NUÑEZ and had the opportunity to ask questions and assume patient care.
--- NOTE | 2022-07-08 19:29 | NUR ---
Patient in room IVA 344B. I have received report from SAVANNAH BAILEY and had the opportunity to ask questions and assume patient care.
--- NOTE | 2022-07-08 19:29 | NUR ---
Problems reprioritized. Patient report given, questions answered & plan of care reviewed with SAVANNAH BAILEY.
[2022-07-08 22:30] VITALS: BP 107/66
[2022-07-09] MEDS: ceFAZolin/D5W- 1GM premix 50 ML IV SCH ×3 (01:03→19:23)
[2022-07-09] MEDS: acetaminophen 325mg tablet PO PRN ×2 (01:10→19:23)
[2022-07-09 06:28] LABS: ALBUMIN 2.5 G/DL (3.4-5.0); ANION GAP 9 (8-16); BLOOD UREA NITROGEN 42 MG/DL (7-18); BUN/CREATININE RATIO 24.1 (5.4-32.0); CALCIUM 8.6 MG/DL (8.5-10.1); CHLORIDE 105 MMOL/L (99-107); CREATININE 1.74 MG/DL (0.60-1.10); GLUCOSE 118 MG/DL (70-104); SODIUM 140 MMOL/L (135-145); TOTAL CARBON DIOXIDE 26.1 MMOL/L (24-32); eGFR 41 ML/MIN
--- NOTE | 2022-07-09 06:30 | NUR ---
Problems reprioritized. Patient report given, questions answered & plan of care reviewed with Jamaal NUÑEZ.
[2022-07-09] MEDS: docusate sod 100mg capsule PO SCH ×2 (08:00→20:00)
[2022-07-09] MEDS: heparin, porcine 5000 units/ml vial SQ SCH ×2 (08:00→20:00)
[2022-07-09] MEDS: normal saline 1000ml 1,000 ML IV SCH (10:15)
--- NOTE | 2022-07-09 14:24 | NUR ---
[facility]R ID: [id number] MESSAGE: TRUNG GLENDY DOWNS RM 894Y. C/O PAIN TRAVELING UP R SIDE NECK, CAUSIG EAR PAIN AND DIFFICULTY SWALLOWING. THANK YOU, HOLDEN NUÑEZ
[2022-07-09 18:00] VITALS: BP 136/86
--- NOTE | 2022-07-09 18:55 | NUR ---
Patient in room IVA 344. I have received report from HOLDEN NUÑEZ and had the opportunity to ask questions and assume patient care.
--- NOTE | 2022-07-09 21:58 | NUR ---
PATIENT VERY ABUSIVE AND AGGRESSIVE TOWARDS STAFF. HE IS UNHOOKING HIMSELF FROM IV LINES AND EXPLAINED TO HIM THAT WE ARE TRYING TO PRESERVE THE IV ACCESS. HE IS UNWILLING TO REASON WITH ANY STAFF. SECURITY NOTIFIED AND WILL LET MD KNOW IF PATIENT CONTINUES TO BE ABUSIVE. HE HAS REFUSED MEDICATION EXCEPT FOR TYLENOL AND ANTIBIOTICS. NOT SAFE FOR STAFF TO ENTER THE ROOM. PAGED MD FOR HIS REQUEST TO HAVE LOZENGES AND WILL PUT IN AN ORDER.
[2022-07-09] MEDS ORDERED: HALLS - SOOTHE MENTHOL 1.8 MG cough drop LOZENGE MM PRN (22:10)
[2022-07-10] MEDS: ceFAZolin/D5W- 1GM premix 50 ML IV SCH ×3 (02:24→18:00)
[2022-07-10] MEDS: acetaminophen 325mg tablet PO PRN ×2 (02:41→16:12)
--- NOTE | 2022-07-10 02:42 | NUR ---
pt called states IV leaking d/c'd with cannula intact. Pts antibiotic not infused, refuses another IV at this time.
[2022-07-10 05:00] VITALS: BP_SYST 116; BP_SYST 119; BP_DIAS 77; BP_DIAS 81
--- NOTE | 2022-07-10 05:33 | NUR ---
PATIENT REFUSED TO HAVE AN IV ACCESS AFTER THE PREVIOUS ONE INFILTRATED. EDUCATED PATIENT THAT HE HAS IV ANTIBIOTICS SCHEDULED AND HE DOES NOT WANT TO LISTEN TO WHAT STAFF ARE SAYING. WILL CONTINUE TO MONITOR.
--- NOTE | 2022-07-10 06:42 | NUR ---
Problems reprioritized. Patient report given, questions answered & plan of care reviewed with HOLDEN NUÑEZ.
[2022-07-10] MEDS: docusate sod 100mg capsule PO SCH ×2 (08:00→20:00)
[2022-07-10] MEDS: heparin, porcine 5000 units/ml vial SQ SCH ×2 (08:00→20:00)
--- NOTE | 2022-07-10 08:39 | NUR ---
Reassessment: Diet has been liberalized to Regular and pt continues to eat well w/ 100% intake of meals while receiving double protein TID, Meeting est needs at this time. LBM 07/09. No nutrition intervention implemented at this time, will continue to monitor. Recommendations: 1. Continue Regular diet as tolerated 2. Double protein BIDBD for satiety; Gatorade upon request per track grinder operator 3. Bowel care per rx 4. Scaled weight this admit; subsequent weekly scaled weights Addendum: 07/10/22 at [address] Amended: Links added.
[2022-07-10] MEDS: Chloraseptic (Phenol) Spray 177ml MM PRN ×2 (11:41→16:12)
--- NOTE | 2022-07-10 17:13 | NUR ---
PAGER ID: [phone] MESSAGE: RE GLENDY HURDPER RM 605R CAN HE HAVE AN ORDER FOR IBUPROFEN FOR PAIN? THANK YOU, HOLDEN NUÑEZ
[2022-07-10 18:00] VITALS: BP 106/66
[2022-07-10] MEDS: HYDROcodone/acetaminophen 10/325mg tab PO PRN (20:23)
[2022-07-10] MEDS: apixaban 5mg tablet PO SCH (20:24)
[2022-07-10 22:00] VITALS: BP 104/63
[2022-07-11] MEDS: ceFAZolin/D5W- 1GM premix 50 ML IV SCH ×4 (02:00→18:00)
[2022-07-11] MEDS: acetaminophen 325mg tablet PO PRN ×2 (02:58→17:02)
[2022-07-11 06:32] VITALS: BP 101/78
[2022-07-11] MEDS: heparin, porcine 5000 units/ml vial SQ SCH (08:00)
[2022-07-11] MEDS: docusate sod 100mg capsule PO SCH ×2 (08:00→19:18)
[2022-07-11] MEDS: apixaban 5mg tablet PO SCH ×2 (09:39→19:16)
[2022-07-11 10:00] VITALS: BP 107/68
[2022-07-11] MEDS: normal saline 1000ml 1,000 ML IV SCH (10:15)
[2022-07-11 18:00] VITALS: BP 133/96
--- NOTE | 2022-07-11 20:00 | NUR ---
Pt has refused to have his antibiotics this shift. Stating "I feel so much better right now, and the antibiotics hurt my stomach". Pt started talking about conspiracy theory of the hospital, pt was reassured, hard to redirect. Will continue to monitor. Addendum: 07/12/22 at 0156 by Zena Farah RN Amended: Links added.
[2022-07-11] MEDS: HYDROcodone/acetaminophen 10/325mg tab PO PRN (21:47)
[2022-07-11 22:00] VITALS: BP 106/62
[2022-07-12] MEDS: ceFAZolin/D5W- 1GM premix 50 ML IV SCH ×2 (01:48→10:57)
[2022-07-12] MEDS: ondansetron/PF 4mg/2ml inj IV PRN ×3 (04:36→23:53)
[2022-07-12] MEDS: HYDROcodone/acetaminophen 5mg/325mg tablet PO PRN ×3 (04:45→23:53)
[2022-07-12 06:00] VITALS: BP 108/67
--- NOTE | 2022-07-12 06:32 | NUR ---
Problems reprioritized. Patient report given, questions answered & plan of care reviewed with Lilliam NUÑEZ. Addendum: 07/12/22 at 0632 by Zena Farah RN Amended: Links added.
[2022-07-12 07:01] LABS: BASOPHILS # (AUTO) 0.2 X10'3 (0-0.2); BASOPHILS % (AUTO) 0.8 % (0-1); EOSINOPHILS # (AUTO) 0.2 X10'3 (0-0.9); HEMATOCRIT 32.9 % (42.0-52.0); LYMPHOCYTES % (AUTO) 9.9 % (21-51); MEAN CORPUSCULAR HGB CONC 33.4 g/dL (33.0-36.5); MEAN CORPUSCULAR VOLUME 86.7 FL (78-98); MEAN PLATELET VOLUME 7.8 FL (7.4-10.4); MONOCYTES % (AUTO) 9.5 % (2-12); NEUTROPHILS # (AUTO) 16.3 X10'3 (1.8-7.7); NEUTROPHILS % (AUTO) 78.8 % (42-75); PLATELET COUNT 506 X10'3 (140-440); RED BLOOD COUNT 3.79 X10'6 (4.70-6.10); RED CELL DISTRIBUTION WIDTH 13.4 % (11.5-14.5); WHITE BLOOD COUNT 20.6 X10'3 (4.5-11.0)
[2022-07-12 07:20] LABS: ALANINE AMINOTRANSFERASE 28 U/L (12-78); ALBUMIN 2.7 G/DL (3.4-5.0); ALBUMIN/GLOBULIN RATIO 0.6 (1.1-1.5); ALKALINE PHOSPHATASE 138 IU/L (46-116); ANION GAP 8 (8-16); ASPARTATE AMINO TRANSFERASE 17 U/L (10-37); BILIRUBIN,TOTAL 0.2 MG/DL (0.1-1.0); BLOOD UREA NITROGEN 21 MG/DL (7-18); BUN/CREATININE RATIO 16.9 (5.4-32.0); CALCIUM 9.2 MG/DL (8.5-10.1); CHLORIDE 102 MMOL/L (99-107); CREATININE 1.24 MG/DL (0.60-1.10); GLUCOSE 130 MG/DL (70-104); SODIUM 138 MMOL/L (135-145); TOTAL CARBON DIOXIDE 28.2 MMOL/L (24-32); TOTAL PROTEIN 7.6 G/DL (6.4-8.2); eGFR 61 ML/MIN
[2022-07-12] MEDS: docusate sod 100mg capsule PO SCH ×2 (08:38→20:16)
[2022-07-12] MEDS: apixaban 5mg tablet PO SCH ×2 (08:38→20:17)
[2022-07-12 10:00] VITALS: BP 133/85
[2022-07-12] MEDS: clindamycin-Cleocin 900mg/D5W 50 ML IV SCH ×2 (12:51→21:30)
[2022-07-12 18:00] VITALS: BP 112/72
--- NOTE | 2022-07-12 19:21 | NUR ---
Report given to Zena NUÑEZ. Pt is sleeping and does not need anything at this time. Lilliam Joy RN reviewed care and charting.
[2022-07-12] MEDS: acetaminophen 325mg tablet PO PRN (20:16)
[2022-07-12] MEDS: cefazolin/dext.iso 2gm/100ml 100 ML IV SCH (20:18)
[2022-07-12 22:00] VITALS: BP 122/77
[2022-07-12] MEDS: mag hydrox/Alum hydrox/simeth 30ml oral suspension PO PRN (23:46)
[2022-07-13] MEDS: cefazolin/dext.iso 2gm/100ml 100 ML IV SCH ×3 (03:50→20:05)
[2022-07-13] MEDS: HYDROcodone/acetaminophen 5mg/325mg tablet PO PRN ×2 (03:50→08:58)
--- NOTE | 2022-07-13 04:13 | NUR ---
Student documentation: I have reviewed and agree with all interventions, assessments performed and documented by Jose Carlos. Addendum: 07/13/22 at 0420 by Zena Farah RN Amended: Links added.
[2022-07-13] MEDS: clindamycin-Cleocin 900mg/D5W 50 ML IV SCH ×3 (04:25→20:50)
[2022-07-13 06:00] VITALS: BP 136/80
--- NOTE | 2022-07-13 06:25 | NUR ---
Problems reprioritized. Patient report given, questions answered & plan of care reviewed with Lilliam NUÑEZ. Addendum: 07/13/22 at 0626 by Zena Farah RN Amended: Links added.
[2022-07-13 06:39] LABS: BASOPHILS # (AUTO) 0.1 X10'3 (0-0.2); EOSINOPHILS # (AUTO) 0.2 X10'3 (0-0.9); EOSINOPHILS % (AUTO) 0.8 % (0-6); HEMATOCRIT 32.9 % (42.0-52.0); HEMOGLOBIN 11.4 g/dl (14.0-17.9); MEAN PLATELET VOLUME 8.3 FL (7.4-10.4); NEUTROPHILS # (AUTO) 17.8 X10'3 (1.8-7.7)
[2022-07-13 06:42] LABS: BASOPHILS % (AUTO) 0.6 % (0-1); MEAN CORPUSCULAR HEMOGLOBIN 29.8 PG (27.0-31.0); MEAN CORPUSCULAR HGB CONC 34.7 g/dL (33.0-36.5); MEAN CORPUSCULAR VOLUME 85.8 FL (78-98); MONOCYTES # (AUTO) 1.8 X10'3 (0-0.9); MONOCYTES % (AUTO) 8.1 % (2-12); NEUTROPHILS % (AUTO) 81.5 % (42-75); PLATELET COUNT 506 X10'3 (140-440); RED BLOOD COUNT 3.84 X10'6 (4.70-6.10); RED CELL DISTRIBUTION WIDTH 13.2 % (11.5-14.5); WHITE BLOOD COUNT 21.8 X10'3 (4.5-11.0)
[2022-07-13 07:17] LABS: ALANINE AMINOTRANSFERASE 22 U/L (12-78); ALBUMIN 2.7 G/DL (3.4-5.0); ALBUMIN/GLOBULIN RATIO 0.6 (1.1-1.5); ALKALINE PHOSPHATASE 148 IU/L (46-116); ANION GAP 10 (8-16); ASPARTATE AMINO TRANSFERASE 16 U/L (10-37); BILIRUBIN,TOTAL 0.3 MG/DL (0.1-1.0); BLOOD UREA NITROGEN 17 MG/DL (7-18); CALCIUM 9.2 MG/DL (8.5-10.1); CHLORIDE 99 MMOL/L (99-107); CREATININE 1.21 MG/DL (0.60-1.10); GLUCOSE 136 MG/DL (70-104); POTASSIUM 3.8 MMOL/L (3.5-5.1); SODIUM 136 MMOL/L (135-145); TOTAL CARBON DIOXIDE 27.2 MMOL/L (24-32); TOTAL PROTEIN 7.6 G/DL (6.4-8.2); eGFR 63 ML/MIN
[2022-07-13] MEDS: docusate sod 100mg capsule PO SCH ×2 (08:57→20:00)
[2022-07-13] MEDS: apixaban 5mg tablet PO SCH ×2 (08:58→20:00)
[2022-07-13] MEDS ORDERED: morphine 2 MG/ML inj. syringe IV PRN (09:40)
[2022-07-13 10:00] VITALS: BP 122/81
[2022-07-13] MEDS: normal saline 1000ml 1,000 ML IV SCH (11:05)
[2022-07-13] MEDS: mag hydrox/Alum hydrox/simeth 30ml oral suspension PO PRN ×2 (11:09→20:00)
[2022-07-13] MEDS: ondansetron/PF 4mg/2ml inj IV PRN (16:20)
[2022-07-13] MEDS: acetaminophen 325mg tablet PO PRN ×2 (16:21→23:23)
[2022-07-13 18:00] VITALS: BP 127/89
--- NOTE | 2022-07-13 18:54 | NUR ---
Report given to Jacki Matthews. pt is walking through the hallways and does not need anything at this time. Lilliam Joy Rn looked over care and charting.
[2022-07-13] MEDS: HYDROcodone/acetaminophen 10/325mg tab PO PRN (20:50)
[2022-07-14] MEDS: HYDROcodone/acetaminophen 10/325mg tab PO PRN ×2 (00:55→21:57)
[2022-07-14] MEDS: cefazolin/dext.iso 2gm/100ml 100 ML IV SCH ×3 (03:24→19:44)
[2022-07-14] MEDS: clindamycin-Cleocin 900mg/D5W 50 ML IV SCH ×3 (04:00→20:52)
--- NOTE | 2022-07-14 04:14 | NUR ---
Pt upset that IV pump keeps beeping. Patient was found in hallway pushing IV pool down the hallway away from his room with it disconnected and powered off by the ASSISTANT PORTFOLIO MANAGER. When this nurse questioned the patient if he wanted his IV ABX Patient stated that he could not handle the IV beeping. This nurse tried to educate the patient that they will beep for several different reasons and that he needs to put his call light on for it to be fixed. Patient expressed that it started to beep right after I left his room a couple minutes prior and he just wants to sleep and the IV pump wont stop making noises. I further asked if he was agreeable to the infusion of his second IV ABX due (Clindamycin) and patient refused at this time stating again that he just wanted to sleep. Patient request honored at this time. Call light within reach of patient, will continue to monitor.
--- NOTE | 2022-07-14 05:02 | NUR ---
Patient refused AM vital signs at this time. Will pass information to dayshift RN.
[2022-07-14 06:13] LABS: ALANINE AMINOTRANSFERASE 20 U/L (12-78); ALBUMIN 2.6 G/DL (3.4-5.0); ALBUMIN/GLOBULIN RATIO 0.5 (1.1-1.5); ALKALINE PHOSPHATASE 164 IU/L (46-116); ANION GAP 8 (8-16); ASPARTATE AMINO TRANSFERASE 20 U/L (10-37); BILIRUBIN,TOTAL 0.2 MG/DL (0.1-1.0); BLOOD UREA NITROGEN 17 MG/DL (7-18); BUN/CREATININE RATIO 14.4 (5.4-32.0); CALCIUM 9.3 MG/DL (8.5-10.1); CHLORIDE 100 MMOL/L (99-107); CREATININE 1.18 MG/DL (0.60-1.10); GLUCOSE 115 MG/DL (70-104); POTASSIUM 4.1 MMOL/L (3.5-5.1); SODIUM 136 MMOL/L (135-145); TOTAL CARBON DIOXIDE 27.8 MMOL/L (24-32); TOTAL PROTEIN 7.7 G/DL (6.4-8.2); eGFR 65 ML/MIN
[2022-07-14 06:50] LABS: BASOPHILS # (AUTO) 0.1 X10'3 (0-0.2); BASOPHILS % (AUTO) 0.5 % (0-1); EOSINOPHILS # (AUTO) 0.3 X10'3 (0-0.9); EOSINOPHILS % (AUTO) 2.4 % (0-6); HEMATOCRIT 36.9 % (42.0-52.0); LYMPHOCYTES # (AUTO) 2.3 X10'3 (1.1-4.8); LYMPHOCYTES % (AUTO) 17.1 % (21-51); MEAN CORPUSCULAR HEMOGLOBIN 28.3 PG (27.0-31.0); MEAN CORPUSCULAR HGB CONC 32.5 g/dL (33.0-36.5); MEAN PLATELET VOLUME 8.3 FL (7.4-10.4); MONOCYTES # (AUTO) 1.5 X10'3 (0-0.9); MONOCYTES % (AUTO) 11.1 % (2-12); NEUTROPHILS # (AUTO) 9.4 X10'3 (1.8-7.7); NEUTROPHILS % (AUTO) 68.9 % (42-75); PLATELET COUNT 495 X10'3 (140-440); RED BLOOD COUNT 4.24 X10'6 (4.70-6.10); RED CELL DISTRIBUTION WIDTH 13.3 % (11.5-14.5); WHITE BLOOD COUNT 13.7 X10'3 (4.5-11.0)
[2022-07-14] MEDS: docusate sod 100mg capsule PO SCH ×2 (07:50→19:42)
[2022-07-14] MEDS: acetaminophen 325mg tablet PO PRN ×2 (07:50→15:55)
[2022-07-14] MEDS: apixaban 5mg tablet PO SCH ×2 (07:51→19:42)
[2022-07-14 11:00] VITALS: BP 115/86
[2022-07-14] MEDS: mag hydrox/Alum hydrox/simeth 30ml oral suspension PO PRN ×3 (12:06→19:53)
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
[2022-07-14 18:00] VITALS: BP 136/84
[2022-07-14] MEDS: ondansetron/PF 4mg/2ml inj IV PRN (20:52)
[2022-07-14 22:00] VITALS: BP 121/84
--- NOTE | 2022-07-14 22:00 | NUR ---
Came back from break with patient upset about pain medication and when they were due r/t to him having a headache. Patient was raising his voice and yelling being rude to staff. When this nurse entered patient's room he had calmed down a bit and was able to explain that he was frustrated with the timing of his tylenol. After several minutes it was worked out that the tylenol would be given with his next dose of antibiotics and he would receive a [place] now. Patient verbalized agreement with this plan. Call light within reach. Will continue to monitor.
[2022-07-15] MEDS: cefazolin/dext.iso 2gm/100ml 100 ML IV SCH ×3 (03:19→19:28)
[2022-07-15] MEDS: acetaminophen 325mg tablet PO PRN ×3 (03:19→19:28)
[2022-07-15] MEDS: ondansetron/PF 4mg/2ml inj IV PRN (04:07)
[2022-07-15] MEDS: clindamycin-Cleocin 900mg/D5W 50 ML IV SCH ×3 (04:07→20:02)
[2022-07-15 07:33] LABS: BASOPHILS # (AUTO) 0.1 X10'3 (0-0.2); BASOPHILS % (AUTO) 0.6 % (0-1); EOSINOPHILS # (AUTO) 0.4 X10'3 (0-0.9); EOSINOPHILS % (AUTO) 2.8 % (0-6); HEMATOCRIT 34.9 % (42.0-52.0); HEMOGLOBIN 11.6 g/dl (14.0-17.9); LYMPHOCYTES # (AUTO) 2.6 X10'3 (1.1-4.8); LYMPHOCYTES % (AUTO) 19.7 % (21-51); MEAN CORPUSCULAR HEMOGLOBIN 29.3 PG (27.0-31.0); MEAN CORPUSCULAR HGB CONC 33.4 g/dL (33.0-36.5); MEAN CORPUSCULAR VOLUME 87.6 FL (78-98); MEAN PLATELET VOLUME 7.9 FL (7.4-10.4); MONOCYTES # (AUTO) 1.5 X10'3 (0-0.9); NEUTROPHILS # (AUTO) 8.7 X10'3 (1.8-7.7); NEUTROPHILS % (AUTO) 65.9 % (42-75); PLATELET COUNT 495 X10'3 (140-440); RED BLOOD COUNT 3.98 X10'6 (4.70-6.10); RED CELL DISTRIBUTION WIDTH 13.6 % (11.5-14.5); WHITE BLOOD COUNT 13.2 X10'3 (4.5-11.0)
[2022-07-15 07:50] LABS: ALANINE AMINOTRANSFERASE 22 U/L (12-78); ALBUMIN 2.8 G/DL (3.4-5.0); ALBUMIN/GLOBULIN RATIO 0.6 (1.1-1.5); ALKALINE PHOSPHATASE 162 IU/L (46-116); ANION GAP 11 (8-16); ASPARTATE AMINO TRANSFERASE 20 U/L (10-37); BILIRUBIN,TOTAL 0.1 MG/DL (0.1-1.0); BLOOD UREA NITROGEN 22 MG/DL (7-18); BUN/CREATININE RATIO 17.1 (5.4-32.0); CHLORIDE 98 MMOL/L (99-107); CREATININE 1.29 MG/DL (0.60-1.10); GLUCOSE 98 MG/DL (70-104); POTASSIUM 4.5 MMOL/L (3.5-5.1); SODIUM 136 MMOL/L (135-145); TOTAL CARBON DIOXIDE 27.3 MMOL/L (24-32); TOTAL PROTEIN 7.7 G/DL (6.4-8.2); eGFR 58 ML/MIN
[2022-07-15 10:00] VITALS: BP 121/80
[2022-07-15] MEDS: apixaban 5mg tablet PO SCH ×2 (10:02→19:27)
[2022-07-15] MEDS: docusate sod 100mg capsule PO SCH ×2 (10:03→19:27)
[2022-07-15] MEDS: normal saline 1000ml 1,000 ML IV SCH (10:15)
[2022-07-15] MEDS: mag hydrox/Alum hydrox/simeth 30ml oral suspension PO PRN (11:38)
[2022-07-15 18:00] VITALS: BP 127/91
[2022-07-15] MEDS: HYDROcodone/acetaminophen 10/325mg tab PO PRN (20:49)
[2022-07-15 22:00] VITALS: BP 116/80
[2022-07-16] MEDS: cefazolin/dext.iso 2gm/100ml 100 ML IV SCH ×3 (04:08→19:26)
[2022-07-16] MEDS: acetaminophen 325mg tablet PO PRN ×2 (04:08→16:03)
[2022-07-16] MEDS: clindamycin-Cleocin 900mg/D5W 50 ML IV SCH ×3 (04:52→20:31)
[2022-07-16 06:00] VITALS: BP 122/87
--- NOTE | 2022-07-16 06:48 | NUR ---
Report to Mckenzie NUÑEZ
[2022-07-16 06:49] LABS: BASOPHILS # (AUTO) 0.1 X10'3 (0-0.2); BASOPHILS % (AUTO) 0.6 % (0-1); EOSINOPHILS # (AUTO) 0.3 X10'3 (0-0.9); EOSINOPHILS % (AUTO) 3.5 % (0-6); HEMATOCRIT 33.6 % (42.0-52.0); HEMOGLOBIN 11.2 g/dl (14.0-17.9); LYMPHOCYTES # (AUTO) 1.8 X10'3 (1.1-4.8); LYMPHOCYTES % (AUTO) 19.2 % (21-51); MEAN CORPUSCULAR HEMOGLOBIN 29.3 PG (27.0-31.0); MEAN CORPUSCULAR HGB CONC 33.3 g/dL (33.0-36.5); MEAN CORPUSCULAR VOLUME 87.9 FL (78-98); MONOCYTES % (AUTO) 10.9 % (2-12); NEUTROPHILS # (AUTO) 6.3 X10'3 (1.8-7.7); NEUTROPHILS % (AUTO) 65.8 % (42-75); PLATELET COUNT 512 X10'3 (140-440); RED BLOOD COUNT 3.82 X10'6 (4.70-6.10); RED CELL DISTRIBUTION WIDTH 13.3 % (11.5-14.5); WHITE BLOOD COUNT 9.6 X10'3 (4.5-11.0)
--- NOTE | 2022-07-16 06:50 | NUR ---
Patient in room IVA 344. I have received report from Izabel NUÑEZ and had the opportunity to ask questions and assume patient care.
--- NOTE | 2022-07-16 06:59 | NUR ---
Patient in room IVA 344. I have received report from Izabel NUÑEZ and had the opportunity to ask questions and assume patient care.
[2022-07-16 07:17] LABS: ALANINE AMINOTRANSFERASE 18 U/L (12-78); ALBUMIN 2.7 G/DL (3.4-5.0); ALBUMIN/GLOBULIN RATIO 0.6 (1.1-1.5); ALKALINE PHOSPHATASE 156 IU/L (46-116); ANION GAP 8 (8-16); ASPARTATE AMINO TRANSFERASE 18 U/L (10-37); BILIRUBIN,TOTAL 0.1 MG/DL (0.1-1.0); BLOOD UREA NITROGEN 21 MG/DL (7-18); BUN/CREATININE RATIO 16.9 (5.4-32.0); CALCIUM 9.3 MG/DL (8.5-10.1); CHLORIDE 100 MMOL/L (99-107); CREATININE 1.24 MG/DL (0.60-1.10); GLUCOSE 107 MG/DL (70-104); POTASSIUM 4.3 MMOL/L (3.5-5.1); SODIUM 136 MMOL/L (135-145); TOTAL CARBON DIOXIDE 27.9 MMOL/L (24-32); TOTAL PROTEIN 7.5 G/DL (6.4-8.2); eGFR 61 ML/MIN
--- NOTE | 2022-07-16 07:19 | NUR ---
f/u 07/16: TC from RN stating that pt believes he is losing wt. Unfortunately, there is no wt hx this admit, though wt loss is very unlikely as pt is eating mostly 100% of meals through LOS while receiving double protein BID and Gatorade TID, which is already exceeding his est needs Recommend obtaining scaled wt. Addendum: 07/16/22 at [address] Amended: Links added.
[2022-07-16] MEDS: apixaban 5mg tablet PO SCH ×2 (07:41→19:38)
[2022-07-16] MEDS: docusate sod 100mg capsule PO SCH ×2 (07:41→19:41)
[2022-07-16 10:00] VITALS: BP 116/81
--- NOTE | 2022-07-16 14:21 | NUR ---
PAGER ID: [phone] MESSAGE: Turner Gold#[id number]- FYI- Pt has refused his 1100am, and 1200 antibiotic, wanted to wait until after lunch and will not allow the antibiotics to be hung even 2 hrs late. Will note refusal. thank you. Mckenzie Inman [phone]
--- NOTE | 2022-07-16 18:32 | NUR ---
Problems reprioritized. Patient report given, questions answered & plan of care reviewed with zully andrea rn.
--- NOTE | 2022-07-16 18:35 | NUR ---
Patient in room IVA 344. I have received report from SINAI NUÑEZ and had the opportunity to ask questions and assume patient care.
[2022-07-16] MEDS: normal saline 1000ml 1,000 ML IV SCH (19:26)
[2022-07-16] MEDS: HYDROcodone/acetaminophen 10/325mg tab PO PRN (19:41)
[2022-07-16 22:00] VITALS: BP 118/78
[2022-07-17] MEDS: mag hydrox/Alum hydrox/simeth 30ml oral suspension PO PRN (00:47)
[2022-07-17] MEDS: acetaminophen 325mg tablet PO PRN (03:46)
[2022-07-17] MEDS: cefazolin/dext.iso 2gm/100ml 100 ML IV SCH ×3 (03:48→19:23)
[2022-07-17] MEDS: clindamycin-Cleocin 900mg/D5W 50 ML IV SCH ×3 (04:42→20:13)
--- NOTE | 2022-07-17 06:54 | NUR ---
Patient in room IVA 344. I have received report from Sonia Scott Rn and had the opportunity to ask questions and assume patient care.
[2022-07-17] MEDS: apixaban 5mg tablet PO SCH (08:26)
[2022-07-17] MEDS: docusate sod 100mg capsule PO SCH ×2 (08:26→20:14)
--- NOTE | 2022-07-17 13:52 | NUR ---
Problems reprioritized. Patient report given, questions answered & plan of care reviewed with Hazel pierson.
--- NOTE | 2022-07-17 18:47 | NUR ---
Problems reprioritized. Patient report given, questions answered & plan of care reviewed with dax NUÑEZ .
--- NOTE | 2022-07-17 18:52 | NUR ---
Patient in room IVA 344. I have received report from Mckenzie NUÑEZ and had the opportunity to ask questions and assume patient care.
[2022-07-17] MEDS: HYDROcodone/acetaminophen 10/325mg tab PO PRN (19:22)
[2022-07-17] MEDS ORDERED: apixaban 5mg tablet PO SCH (20:00)
[2022-07-17 22:00] VITALS: BP 102/57
[2022-07-18] MEDS: acetaminophen 325mg tablet PO PRN (00:36)
--- NOTE | 2022-07-18 02:56 | NUR ---
[facility] ARRIVED TO TRANSPORT PATIENT TO [facility]. ALL BELONGINGS RETURNED TO PATIENT THAT WERE LOCKED UP. PLAN IS FOR PT TO HAVE A TOTAL OF 6WEEKS OF IV ANTIBIOTICS FOR INFECTED TUNNEL DIALYSIS CATHETER R CHEST WALL.
== END 2022-07-18 00:45 | DRG 721 ==
LOC: ER 00:06 → ED HOLD 09:52 → EDBEDREQ 20:50 → SUR 3N 21:32
PROVIDERS: ADMIT Internal Medicine; ATTEND Internal Medicine
PROC: 0JPT3XZ Removal of Tunneled Vascular Access Device from Trunk Subcutaneous Tissue and Fascia, Percutaneous Approach (ICD-10-PCS; principal; 2022-07-01)
DX: T80.211A Bloodstream infection due to central venous catheter, initial encounter (principal); A41.01 Sepsis due to Methicillin susceptible Staphylococcus aureus; M62.82 Rhabdomyolysis; N17.9 Acute kidney failure, unspecified; Y84.8 Other medical procedures as the cause of abnormal reaction of the patient, or of later complication, without mention of misadventure at the time of the procedure; G89.29 Other chronic pain; F33.1 Major depressive disorder, recurrent, moderate; M54.9 Dorsalgia, unspecified; D64.9 Anemia, unspecified; L03.221 Cellulitis of neck; I82.C21 Chronic embolism and thrombosis of right internal jugular vein; F19.10 Other psychoactive substance abuse, uncomplicated; M54.2 Cervicalgia; R51.9 Headache, unspecified; B18.2 Chronic viral hepatitis C; F15.90 Other stimulant use, unspecified, uncomplicated; F17.210 Nicotine dependence, cigarettes, uncomplicated; L08.9 Local infection of the skin and subcutaneous tissue, unspecified; N39.0 Urinary tract infection, site not specified; Z59.02 Unsheltered homelessness; Z88.2 Allergy status to sulfonamides; Y92.89 Other specified places as the place of occurrence of the external cause
CPT/HCPCS: 36415; 36589; 70490; 71045; 80048; 80053; 80202; 81001; 83605; 83735; 84145; 84484; 85007; 85025; 87040; 87070; 87075; 87077; 87081; 87088; 87186; 93005; 93306; 93971; 96365; 99285; A6212; A6213; A6258; A6449; G0378; J0690; J0692; J1644; J2405; J3370; J3490; J7030; J7040; J7060

== ENCOUNTER 2022-08-03 03:15 | Emergency (ER) | payer MEDICAID ==
[~2022-08-03] VITALS: Ht 175.3 cm; Wt 65.8 kg
[2022-08-03 03:27] VITALS: BP 131/93
[2022-08-03 04:45] LABS: ALANINE AMINOTRANSFERASE 31 U/L (12-78); ALBUMIN 3.6 G/DL (3.4-5.0); ALBUMIN/GLOBULIN RATIO 0.8 (1.1-1.5); ALKALINE PHOSPHATASE 129 IU/L (46-116); ANION GAP 13 (8-16); ASPARTATE AMINO TRANSFERASE 32 U/L (10-37); BILIRUBIN,TOTAL 0.4 MG/DL (0.1-1.0); BLOOD UREA NITROGEN 16 MG/DL (7-18); BUN/CREATININE RATIO 11.2 (5.4-32.0); CALCIUM 9.2 MG/DL (8.5-10.1); CHLORIDE 100 MMOL/L (99-107); CREATININE 1.43 MG/DL (0.60-1.10); GLUCOSE 144 MG/DL (70-104); POTASSIUM 3.3 MMOL/L (3.5-5.1); SODIUM 137 MMOL/L (135-145); TOTAL CARBON DIOXIDE 24.1 MMOL/L (24-32); TOTAL PROTEIN 7.9 G/DL (6.4-8.2); eGFR 52 ML/MIN
[2022-08-03 04:50] LABS: BASOPHILS # (AUTO) 0.1 X10'3 (0-0.2); BASOPHILS % (AUTO) 1.5 % (0-1); EOSINOPHILS # (AUTO) 0.4 X10'3 (0-0.9); EOSINOPHILS % (AUTO) 4.6 % (0-6); HEMATOCRIT 35.1 % (42.0-52.0); HEMOGLOBIN 11.8 g/dl (14.0-17.9); LYMPHOCYTES # (AUTO) 1.9 X10'3 (1.1-4.8); LYMPHOCYTES % (AUTO) 21.9 % (21-51); MEAN CORPUSCULAR HEMOGLOBIN 29.1 PG (27.0-31.0); MEAN CORPUSCULAR HGB CONC 33.5 g/dL (33.0-36.5); MEAN CORPUSCULAR VOLUME 86.8 FL (78-98); MEAN PLATELET VOLUME 7.6 FL (7.4-10.4); MONOCYTES # (AUTO) 1.2 X10'3 (0-0.9); MONOCYTES % (AUTO) 13.3 % (2-12); NEUTROPHILS # (AUTO) 5.1 X10'3 (1.8-7.7); NEUTROPHILS % (AUTO) 58.7 % (42-75); PLATELET COUNT 527 X10'3 (140-440); RED BLOOD COUNT 4.05 X10'6 (4.70-6.10); RED CELL DISTRIBUTION WIDTH 14.6 % (11.5-14.5); WHITE BLOOD COUNT 8.7 X10'3 (4.5-11.0)
[2022-08-03 05:26] LABS: CLARITY,URINE CLEAR (Clear); COLOR,URINE YELLOW (Yellow); GLUCOSE, URINE NEGATIVE (Neg); KETONES,URINE NEGATIVE (Neg); LEUKOCYTE ESTERASE ,URINE NEGATIVE (Neg); NITRITES, URINE NEGATIVE (Neg); OCCULT BLOOD,URINE TRACE-INTACT (Neg); PH,URINE 5.5 (4.8-8.0); PROTEIN,URINE NEGATIVE (Neg); UROBILINOGEN,URINE 0.2 E.U/dL (0.2-1.0)
[2022-08-03 05:27] LABS: UA COLLECTION TYPE CLN CATCH MIDSTREAM; WBC,URINE 0-4 /HPF (0-4)
[2022-08-03 05:28] LABS: BACTERIA,URINE FEW /HPF (Neg); RBC,URINE 0-2 /HPF (0-2); SQUAMOUS EPITHELIAL CELL,UR FEW /LPF (FEW)
== END 2022-08-03 05:42 | disposition home or self-care (01) ==
LOC: ER 03:19
DX: F41.9 Anxiety disorder, unspecified (principal); Z00.8 Encounter for other general examination; G89.29 Other chronic pain; M54.2 Cervicalgia; F15.10 Other stimulant abuse, uncomplicated; Z88.2 Allergy status to sulfonamides; Z79.899 Other long term (current) drug therapy
CPT/HCPCS: 36415; 80053; 81001; 85025; 87040; 99283

== ENCOUNTER 2022-08-16 09:45 | Emergency (ER) | payer MEDICAID ==
[~2022-08-16] VITALS: Ht 175.3 cm; Wt 68.2 kg
[2022-08-16 10:23] VITALS: BP 143/101
[2022-08-16] MEDS ORDERED: LIDOcaine 1% W/epiNEPHrine 1:200,000 10ml vial IJ ONE (13:00)
[2022-08-16] MEDS ORDERED: LIDOcaine 1% w/EPI 1:100,000 30ml vial (MDV) IJ ONE (13:05)
[2022-08-16] MEDS ORDERED: APIX5TAB3 PO (14:14)
[2022-08-16] MEDS ORDERED: DOXY100C43 PO (14:14)
== END 2022-08-16 14:24 | disposition home or self-care (01) ==
LOC: ER 09:46
DX: L02.413 Cutaneous abscess of right upper limb (principal); G89.29 Other chronic pain; M54.9 Dorsalgia, unspecified; F15.10 Other stimulant abuse, uncomplicated; Z88.2 Allergy status to sulfonamides; Z79.899 Other long term (current) drug therapy
CPT/HCPCS: 10060; 99283; A6258; A6449

== ENCOUNTER 2022-08-28 22:39 | Emergency (ER) | payer MEDICAID ==
[~2022-08-28] VITALS: Ht 177.8 cm; Wt 90.0 kg
[~2022-08-28 22:39] MED LIST changes: +APIX5TAB3 PO
[2022-08-28 23:16] VITALS: BP 154/98
--- NOTE | 2022-08-29 02:31 | NUR ---
pt became agitated and uncoopertive, yelling, security escorted pt out of ER
== END 2022-08-29 02:34 | disposition home or self-care (01) ==
LOC: ER 22:40
DX: R22.1 Localized swelling, mass and lump, neck (principal); R42 Dizziness and giddiness; G89.29 Other chronic pain; M54.9 Dorsalgia, unspecified; F15.10 Other stimulant abuse, uncomplicated; Z88.2 Allergy status to sulfonamides; Z79.899 Other long term (current) drug therapy; Z79.1 Long term (current) use of non-steroidal anti-inflammatories (NSAID)
CPT/HCPCS: 99281

== ENCOUNTER 2022-09-23 13:15 | Emergency (ER) | payer MEDICAID ==
[~2022-09-23] VITALS: Ht 175.3 cm; Wt 72.7 kg
[2022-09-23 13:30] VITALS: BP 132/93
[2022-09-23 14:29] LABS: ALANINE AMINOTRANSFERASE 22 U/L (12-78); ALBUMIN 3.8 G/DL (3.4-5.0); ALBUMIN/GLOBULIN RATIO 1.2 (1.1-1.5); ALKALINE PHOSPHATASE 114 IU/L (46-116); ANION GAP 12 (8-16); ASPARTATE AMINO TRANSFERASE 22 U/L (10-37); BILIRUBIN,TOTAL 0.2 MG/DL (0.1-1.0); BLOOD UREA NITROGEN 21 MG/DL (7-18); BUN/CREATININE RATIO 22.8 (5.4-32.0); CALCIUM 8.8 MG/DL (8.5-10.1); CHLORIDE 103 MMOL/L (99-107); CREATININE 0.92 MG/DL (0.60-1.10); GLUCOSE 97 MG/DL (70-104); MAGNESIUM 2.2 MG/DL (1.5-2.4); POTASSIUM 3.6 MMOL/L (3.5-5.1); SODIUM 138 MMOL/L (135-145); TOTAL CARBON DIOXIDE 23.1 MMOL/L (24-32); TOTAL PROTEIN 7.1 G/DL (6.4-8.2); eGFR 86 ML/MIN
[2022-09-23 14:44] LABS: HEMATOCRIT 41.8 % (42.0-52.0); MEAN CORPUSCULAR HEMOGLOBIN 29.9 PG (27.0-31.0); MEAN CORPUSCULAR HGB CONC 33.5 g/dL (33.0-36.5); MEAN CORPUSCULAR VOLUME 89.2 FL (78-98); MEAN PLATELET VOLUME 7.5 FL (7.4-10.4); PLATELET COUNT 471 X10'3 (140-440); RED BLOOD COUNT 4.69 X10'6 (4.70-6.10); RED CELL DISTRIBUTION WIDTH 15.1 % (11.5-14.5); WHITE BLOOD COUNT 8.6 X10'3 (4.5-11.0)
[2022-09-23 15:16] LABS: TOTAL CELLS COUNTED 100
[2022-09-23 15:17] LABS: PLATELET ESTIMATE INCREASED
[2022-09-23] MEDS ORDERED: meclizine 12.5mg tablet PO ONE (15:50)
[2022-09-23] MEDS ORDERED: ondansetron 4mg rapidly disintigrating tab PO ONE (15:50)
--- NOTE | 2022-09-23 16:09 | NUR ---
called [facility] at this time and left the message for brielle for pt d[facility]c to [facility].
--- NOTE | 2022-09-23 16:14 | NUR ---
SPOKE TO HAIDER FROM [facility] AND ASKED IF ITS OKAY FOR PT TO RETURN TO ER . PER HAIDER PT IS OKAY TO [facility].
[2022-09-23] MEDS ORDERED: APIX5TAB3 PO (16:27)
== END 2022-09-23 17:07 | disposition home or self-care (01) ==
LOC: ER 13:16
DX: R42 Dizziness and giddiness (principal); R11.0 Nausea; H93.13 Tinnitus, bilateral; G89.29 Other chronic pain; F15.90 Other stimulant use, unspecified, uncomplicated; Z86.19 Personal history of other infectious and parasitic diseases; Z72.89 Other problems related to lifestyle; Z88.2 Allergy status to sulfonamides; Z88.8 Allergy status to other drugs, medicaments and biological substances; Z79.899 Other long term (current) drug therapy
CPT/HCPCS: 36415; 80053; 83735; 83880; 84484; 85007; 85025; 85610; 93005; 99284; J8597; 99283

== ENCOUNTER 2022-12-07 19:10 | Emergency (ER) | payer MEDICAID ==
[~2022-12-07] VITALS: Ht 175.3 cm; Wt 99.0 kg
[2022-12-07 19:44] VITALS: BP 156/100
[2022-12-07] MEDS ORDERED: ibuprofen tablet 400 MG TABLET PO ONE (21:05)
[2022-12-07] MEDS ORDERED: DOXYCYCLINE 100MG CAPSULE PO STA (21:05)
--- NOTE | 2022-12-07 21:09 | NUR ---
agree with shadow-computing architect general assessment.
[2022-12-07] MEDS ORDERED: DOXY150T5 PO (21:10)
== END 2022-12-07 22:10 | disposition home or self-care (01) ==
LOC: ER 19:11
DX: L98.499 Non-pressure chronic ulcer of skin of other sites with unspecified severity (principal); G89.29 Other chronic pain; M54.9 Dorsalgia, unspecified; F15.10 Other stimulant abuse, uncomplicated; Z88.2 Allergy status to sulfonamides; Z79.899 Other long term (current) drug therapy; Z79.1 Long term (current) use of non-steroidal anti-inflammatories (NSAID)
CPT/HCPCS: 99283

== ENCOUNTER 2023-02-28 13:32 | Emergency (ER) | payer MEDICAID ==
[2023-02-28] MEDS ORDERED: LORazepam 2 mg/ml vial IM ONE (14:35)
[2023-02-28] MEDS ORDERED: haloperidol lactate 5mg/ml inj IM ONE (14:40)
[2023-02-28] MEDS ORDERED: diphenhydrAMINE 50 mg/ml inj IM ONE (14:40)
[2023-02-28] MEDS ORDERED: LORazepam 2 mg/ml vial ONE (14:41)
== END 2023-02-28 15:58 | disposition home or self-care (01) ==
LOC: ER 13:33
DX: F10.129 Alcohol abuse with intoxication, unspecified (principal); G89.29 Other chronic pain; Z98.890 Other specified postprocedural states; Z99.2 Dependence on renal dialysis; Z88.2 Allergy status to sulfonamides; Z88.8 Allergy status to other drugs, medicaments and biological substances; Z79.01 Long term (current) use of anticoagulants; V89.2XXA Person injured in unspecified motor-vehicle accident, traffic, initial encounter; Y93.89 Activity, other specified; Y92.89 Other specified places as the place of occurrence of the external cause; Y99.8 Other external cause status; Y90.9 Presence of alcohol in blood, level not specified
CPT/HCPCS: 70450; 72125; 82948; 96372; 99285; J1200; J2060

== ENCOUNTER 2023-03-01 21:59 | Emergency (ER) | payer MEDICAID ==
[~2023-03-01] VITALS: Ht 175.3 cm; Wt 72.7 kg
[2023-03-01 22:35] VITALS: BP 136/99
[2023-03-02] MEDS ORDERED: ibuprofen tablet 400 MG TABLET PO ONE (01:10)
[2023-03-02] MEDS ORDERED: cyclobenzaprine 10mg tablet PO ONE (01:10)
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
== END 2023-03-02 01:41 | disposition home or self-care (01) ==
LOC: ER 22:00
DX: M62.830 Muscle spasm of back (principal); G89.29 Other chronic pain; F15.10 Other stimulant abuse, uncomplicated; Z88.2 Allergy status to sulfonamides; Z79.899 Other long term (current) drug therapy
CPT/HCPCS: 99282

== ENCOUNTER 2023-03-25 07:40 | Emergency (ER) | payer MEDICAID ==
[~2023-03-25] VITALS: Ht 170.2 cm; Wt 65.4 kg
[2023-03-25 07:49] VITALS: BP 146/107
--- NOTE | 2023-03-25 08:44 | NUR ---
MADE AWARE OF PT IN MED SCREENING ROOM
[2023-03-25] MEDS ORDERED: [UNRECOGNIZED DRUG - CODE] TOP (09:28)
== END 2023-03-25 09:51 | disposition home or self-care (01) ==
LOC: ER 07:40
DX: F10.129 Alcohol abuse with intoxication, unspecified (principal); B35.3 Tinea pedis; F15.10 Other stimulant abuse, uncomplicated; G89.29 Other chronic pain; M54.9 Dorsalgia, unspecified; Z88.2 Allergy status to sulfonamides; Z88.8 Allergy status to other drugs, medicaments and biological substances; Z79.899 Other long term (current) drug therapy; Y90.9 Presence of alcohol in blood, level not specified
CPT/HCPCS: 99283

== ENCOUNTER 2023-08-20 00:20 | Emergency (ER) | payer MEDICAID ==
[~2023-08-20] VITALS: Ht 180.3 cm; Wt 69.1 kg
[~2023-08-20 00:20] MED LIST changes: +[UNRECOGNIZED DRUG - CODE] TOP
[2023-08-20] MEDS ORDERED: bacitracin 15gm ointment TP ONE (03:30)
[2023-08-20 03:45] VITALS: BP 123/93; PULSE 89; RESP 18; TEMP 98.2; O2SAT 98
== END 2023-08-20 03:46 | disposition home or self-care (01) ==
LOC: ER 00:21
DX: S60.512A Abrasion of left hand, initial encounter (principal); S60.511A Abrasion of right hand, initial encounter; L85.3 Xerosis cutis; Z86.19 Personal history of other infectious and parasitic diseases; G89.29 Other chronic pain; F15.90 Other stimulant use, unspecified, uncomplicated; Z72.89 Other problems related to lifestyle; Z98.890 Other specified postprocedural states; Z88.2 Allergy status to sulfonamides; Z79.01 Long term (current) use of anticoagulants; Z79.899 Other long term (current) drug therapy; X58.XXXA Exposure to other specified factors, initial encounter; Y93.89 Activity, other specified; Y92.89 Other specified places as the place of occurrence of the external cause; Y99.8 Other external cause status
CPT/HCPCS: 99282